=== PATIENT | female | born 1945 | race Caucasian/White ===

== ENCOUNTER 2017-05-14 17:58 | Inpatient (IN) | payer MEDICARE, MEDICAID ==
[~2017-05-14] VITALS: Ht 160 cm; Wt 75.4 kg
[~2017-05-14 17:58] MED LIST: AMLO10TA80 PO; ATOR80TA PO; COR25 PO; FURO40TA5 PO; Folic Acid PO; LEVO112T7 PO; Lisinopril PO; SEVE800T8 PO
[2017-05-14] MEDS ORDERED: ACETAMINOPHEN 325MG TABLET PO STA (18:56)
[2017-05-14] MEDS ORDERED: PIPERACILLIN/TAZ 3.375G PREMIX 50 ML IV ONE (19:00)
[2017-05-14] MEDS ORDERED: VANCOMYCIN 1 G PREMIX 200 ML IV ONE (19:00)
[2017-05-14] MEDS ORDERED: FAMOTIDINE 20MG/2ML VIAL IV ONE (19:00)
[2017-05-14] MEDS ORDERED: SODIUM CHLORIDE 0.9% 1000ML BAG (SEPSIS BOLUS) IV ONE (19:00)
[2017-05-14 19:38] LABS: CHLORIDE 94 mEq/L (98-107)
[2017-05-14 19:41] LABS: HEMATOCRIT. 34.3 % (36.0-48.0); HEMOGLOBIN. 11.3 g/dL (12.0-16.0); INR 1.2; MEAN CORPUSCULAR HEMOGLOBIN 30.7 pg (28.0-32.0); MEAN CORPUSCULAR VOLUME 93.4 fL (81.0-99.0); MEAN PLATELET VOLUME 9.5 fl (7.4-10.4); PARTIAL THROMBOPLASTIN TIME 36.4 sec (23.4-31.0); PLATELET 60 x1000/uL (130-400); PROTHROMBIN TIME 12.3 sec (9.4-11.6); RED BLOOD CELL COUNT 3.67 mill/uL (4.2-5.4); RED CELL DISTRIBUTION WIDTH 14.2 % (11.6-14.6)
[2017-05-14 19:50] LABS: CARBON DIOXIDE 24 mEq/L (21-32); TROPONIN I < 0.02 ng/mL (0.00-0.04)
[2017-05-14 20:09] LABS: PLATELET ESTIMATE DECREASED
[2017-05-14] MEDS ORDERED: GENTAMICIN 80MG PREMIX 100 ML IV ONE (23:15)
[2017-05-14] MEDS ORDERED: NOREPINEPHRINE 4 MG in DEXT 5% WATER 246 ML IV ONE (23:15)
[2017-05-14] MEDS ORDERED: NOREPINEPHRINE 4 MG in DEXT 5% WATER 246 ML IV SCH (23:30)
[2017-05-15] VITALS (96 sets, daily range): BP systolic 64–178; BP diastolic 23–76
[2017-05-15] MEDS ORDERED: DEXT 5%/0.45% NACL 1000ML 1,000 ML IV SCH (01:27)
[2017-05-15] MEDS ORDERED: DEXTROSE 50% WATER 50ML SYRINGE IV PRN (01:30)
[2017-05-15] MEDS ORDERED: NOREPINEPHRINE 4 MG in DEXT 5% WATER 246 ML IV PRN (01:45)
[2017-05-15] MEDS: NOREPINEPHRINE 16 MG in DEXT 5% WATER 234 ML IV PRN ×2 (05:22→18:21)
[2017-05-15 05:37] LABS: HEMATOCRIT. 33.4 % (36.0-48.0); HEMOGLOBIN. 10.9 g/dL (12.0-16.0); MEAN CORPUSCULAR HEMOGLOBIN 30.6 pg (28.0-32.0); MEAN CORPUSCULAR VOLUME 93.9 fL (81.0-99.0); MEAN PLATELET VOLUME 10.1 fl (7.4-10.4); RED BLOOD CELL COUNT 3.55 mill/uL (4.2-5.4); RED CELL DISTRIBUTION WIDTH 14.6 % (11.6-14.6)
[2017-05-15] MEDS: PIPERACILLIN/TAZ 2.25G PREMIX 50 ML IV SCH ×3 (05:58→21:31)
[2017-05-15 06:11] LABS: CARBON DIOXIDE 23 mEq/L (21-32); CHLORIDE 95 mEq/L (98-107); CREATINE KINASE 104 IU/L (26-192); PHOSPHORUS 3.6 mg/dL (2.5-4.9)
[2017-05-15 06:16] LABS: CREATINE KINASE MB FRACTION 1.1 ng/mL (0.5-3.6); TROPONIN I < 0.02 ng/mL (0.00-0.04)
[2017-05-15 06:23] LABS: PLATELET 48 x1000/uL (130-400)
[2017-05-15] MEDS: BLOOD SUGAR DIAGNOSTIC STRIP TEST SCH ×4 (08:13→21:30)
[2017-05-15] MEDS: INSULIN LISPRO 100 UNITS/ML SUBCUT SCH ×4 (08:14→21:00)
[2017-05-15] MEDS ORDERED: PANTOPRAZOLE SODIUM 40 MG/VIAL IV SCH (09:00)
[2017-05-15] MEDS: FAMOTIDINE 20MG/2ML VIAL IV SCH (09:19)
[2017-05-15 12:10] LABS: PLATELET ESTIMATE MARKEDLY DECREASED
[2017-05-15] MEDS ORDERED: HEPARIN SODIUM 1,000 UNIT/1ML VIAL IV SCH (13:00)
[2017-05-16] VITALS (101 sets, daily range): BP systolic 75–152; BP diastolic 31–99
[2017-05-16] MEDS: PIPERACILLIN/TAZ 2.25G PREMIX 50 ML IV SCH ×3 (05:06→22:34)
[2017-05-16 06:19] LABS: HEMATOCRIT. 34.6 % (36.0-48.0); HEMOGLOBIN. 11.3 g/dL (12.0-16.0); MEAN CORPUSCULAR HEMOGLOBIN 30.4 pg (28.0-32.0); MEAN CORPUSCULAR VOLUME 92.6 fL (81.0-99.0); MEAN PLATELET VOLUME 10.7 fl (7.4-10.4); RED BLOOD CELL COUNT 3.74 mill/uL (4.2-5.4); RED CELL DISTRIBUTION WIDTH 14.7 % (11.6-14.6)
[2017-05-16 06:43] LABS: CARBON DIOXIDE 23 mEq/L (21-32); CHLORIDE 99 mEq/L (98-107); PHOSPHORUS 2.9 mg/dL (2.5-4.9)
[2017-05-16 06:50] LABS: PLATELET 38 x1000/uL (130-400)
[2017-05-16] MEDS ORDERED: LIDOCAINE HCL 1% 20ML VIAL (Pyxis) INJ ONE (07:39)
[2017-05-16] MEDS ORDERED: SODIUM BICARBONATE 4% (2.4MEQ) 5ML VIAL IV ONE (07:39)
[2017-05-16] MEDS ORDERED: IOHEXOL-300 50 ML BOTTLE IV ONE (07:40)
[2017-05-16] MEDS ORDERED: FENTANYL CITRATE/PF 50MCG/ML 2ML VIAL ONE (08:16)
[2017-05-16] MEDS ORDERED: FENTANYL CITRATE/PF 50MCG/ML 2ML VIAL IV ONE (08:45)
[2017-05-16 09:13] LABS: PLATELET ESTIMATE MARKEDLY DECREASED
[2017-05-16] MEDS: BLOOD SUGAR DIAGNOSTIC STRIP TEST SCH ×4 (09:25→21:13)
[2017-05-16] MEDS: HYDROMORPHONE HCL/PF 2MG/ML CPJ IM PRN (09:25)
[2017-05-16] MEDS: FAMOTIDINE 20MG/2ML VIAL IV SCH (09:25)
[2017-05-16] MEDS: INSULIN LISPRO 100 UNITS/ML SUBCUT SCH ×4 (09:26→21:00)
[2017-05-16] MEDS ORDERED: FUROSEMIDE 40MG/4ML VIAL IVP NR (10:45)
[2017-05-16] MEDS: ACETAMINOPHEN 325MG TABLET PO PRN (15:22)
[2017-05-16] MEDS: NOREPINEPHRINE 16 MG in DEXT 5% WATER 234 ML IV PRN (15:37)
[2017-05-17] VITALS (50 sets, daily range): BP systolic 95–145; BP diastolic 40–81
[2017-05-17] MEDS: NOREPINEPHRINE 16 MG in DEXT 5% WATER 234 ML IV PRN (00:09)
[2017-05-17 05:24] LABS: BASOPHILS % 0.3 % (0.0-2.0); HEMATOCRIT. 32.6 % (36.0-48.0); HEMOGLOBIN. 10.8 g/dL (12.0-16.0); LYMPHOCYTES % 9.4 % (20.0-50.0); MEAN CORPUSCULAR HEMOGLOBIN 30.6 pg (28.0-32.0); MEAN CORPUSCULAR VOLUME 92.5 fL (81.0-99.0); MEAN PLATELET VOLUME 9.7 fl (7.4-10.4); MONOCYTES % 6.5 % (2.0-8.0); NEUTROPHILS % 82.8 % (40.0-76.0); RED BLOOD CELL COUNT 3.53 mill/uL (4.2-5.4); RED CELL DISTRIBUTION WIDTH 14.8 % (11.6-14.6)
[2017-05-17 05:30] LABS: PLATELET 29 x1000/uL (130-400)
[2017-05-17 05:40] LABS: CARBON DIOXIDE 23 mEq/L (21-32); CHLORIDE 102 mEq/L (98-107); PHOSPHORUS 3.3 mg/dL (2.5-4.9)
[2017-05-17] MEDS: PIPERACILLIN/TAZ 2.25G PREMIX 50 ML IV SCH ×3 (06:08→22:58)
[2017-05-17] MEDS: HYDROMORPHONE HCL/PF 2MG/ML CPJ IM PRN (07:23)
[2017-05-17] MEDS: BLOOD SUGAR DIAGNOSTIC STRIP TEST SCH ×4 (07:50→21:40)
[2017-05-17] MEDS: INSULIN LISPRO 100 UNITS/ML SUBCUT SCH ×4 (08:02→21:00)
[2017-05-17] MEDS: FAMOTIDINE 20MG/2ML VIAL IV SCH (09:24)
[2017-05-17 19:12] LABS: BASOPHILS % 0.6 % (0.0-2.0); EOSINOPHILS % 1.6 % (0.0-5.0); HEMATOCRIT. 33.1 % (36.0-48.0); HEMOGLOBIN. 10.9 g/dL (12.0-16.0); MEAN CORPUSCULAR HEMOGLOBIN 30.9 pg (28.0-32.0); MEAN CORPUSCULAR VOLUME 93.5 fL (81.0-99.0); MEAN PLATELET VOLUME 9.8 fl (7.4-10.4); MONOCYTES % 7.6 % (2.0-8.0); NEUTROPHILS % 77.2 % (40.0-76.0); RED BLOOD CELL COUNT 3.54 mill/uL (4.2-5.4); RED CELL DISTRIBUTION WIDTH 14.8 % (11.6-14.6)
[2017-05-17 19:20] LABS: PLATELET 31 x1000/uL (130-400)
[2017-05-17] MEDS: ACETAMINOPHEN 325MG TABLET PO PRN (23:23)
[2017-05-18] VITALS (12 sets, daily range): BP systolic 106–164; BP diastolic 51–69
[2017-05-18] MEDS: BLOOD SUGAR DIAGNOSTIC STRIP TEST SCH ×4 (05:54→20:27)
[2017-05-18] MEDS: PIPERACILLIN/TAZ 2.25G PREMIX 50 ML IV SCH ×2 (05:55→13:15)
[2017-05-18 05:58] LABS: BASOPHILS % 0.7 % (0.0-2.0); EOSINOPHILS % 2.3 % (0.0-5.0); HEMOGLOBIN. 11.3 g/dL (12.0-16.0); LYMPHOCYTES % 16.6 % (20.0-50.0); MEAN CORPUSCULAR HEMOGLOBIN 30.8 pg (28.0-32.0); MEAN CORPUSCULAR VOLUME 92.3 fL (81.0-99.0); MEAN PLATELET VOLUME 10.3 fl (7.4-10.4); MONOCYTES % 9.4 % (2.0-8.0); RED BLOOD CELL COUNT 3.68 mill/uL (4.2-5.4); RED CELL DISTRIBUTION WIDTH 14.8 % (11.6-14.6)
[2017-05-18 06:21] LABS: PLATELET 30 x1000/uL (130-400)
[2017-05-18 06:54] LABS: CARBON DIOXIDE 22 mEq/L (21-32); CHLORIDE 100 mEq/L (98-107)
[2017-05-18 06:56] LABS: PHOSPHORUS 3.2 mg/dL (2.5-4.9)
[2017-05-18] MEDS: INSULIN LISPRO 100 UNITS/ML SUBCUT SCH ×4 (07:20→20:27)
[2017-05-18] MEDS: FAMOTIDINE 20MG/2ML VIAL IV SCH (08:13)
[2017-05-18] MEDS ORDERED: LEVOFLOXACIN 250MG PREMIX 50 ML IV SCH (20:00)
[2017-05-19] VITALS (13 sets, daily range): BP systolic 131–163; BP diastolic 51–67
[2017-05-19] MEDS: INSULIN LISPRO 100 UNITS/ML SUBCUT SCH ×4 (06:26→20:13)
[2017-05-19] MEDS: BLOOD SUGAR DIAGNOSTIC STRIP TEST SCH ×4 (06:26→20:12)
[2017-05-19 07:13] LABS: EOSINOPHILS % 3.3 % (0.0-5.0); HEMATOCRIT. 33.8 % (36.0-48.0); HEMOGLOBIN. 11.2 g/dL (12.0-16.0); LYMPHOCYTES % 20.1 % (20.0-50.0); MEAN CORPUSCULAR HEMOGLOBIN 30.4 pg (28.0-32.0); MEAN CORPUSCULAR VOLUME 91.7 fL (81.0-99.0); MEAN PLATELET VOLUME 10.7 fl (7.4-10.4); MONOCYTES % 14.5 % (2.0-8.0); NEUTROPHILS % 61.1 % (40.0-76.0); RED BLOOD CELL COUNT 3.69 mill/uL (4.2-5.4); RED CELL DISTRIBUTION WIDTH 14.8 % (11.6-14.6)
[2017-05-19 07:20] LABS: PHOSPHORUS 3.1 mg/dL (2.5-4.9)
[2017-05-19 08:41] LABS: PLATELET 35 x1000/uL (130-400)
[2017-05-19] MEDS ORDERED: HEPARIN SODIUM 1,000 UNIT/1ML VIAL IV SCH (09:00)
[2017-05-19] MEDS: FAMOTIDINE 20MG/2ML VIAL IV SCH (09:12)
[2017-05-19 21:04] LABS: PLATELET ESTIMATE MARKEDLY DECREASED
[2017-05-20] VITALS (11 sets, daily range): BP systolic 150–163; BP diastolic 49–71
[2017-05-20] MEDS: BLOOD SUGAR DIAGNOSTIC STRIP TEST SCH ×3 (06:36→16:50)
[2017-05-20] MEDS: INSULIN LISPRO 100 UNITS/ML SUBCUT SCH ×3 (07:00→17:20)
[2017-05-20 07:24] LABS: HEMATOCRIT. 35.4 % (36.0-48.0); HEMOGLOBIN. 11.6 g/dL (12.0-16.0); MEAN CORPUSCULAR HEMOGLOBIN 30.2 pg (28.0-32.0); MEAN CORPUSCULAR VOLUME 92.3 fL (81.0-99.0); RED BLOOD CELL COUNT 3.83 mill/uL (4.2-5.4); RED CELL DISTRIBUTION WIDTH 14.6 % (11.6-14.6)
[2017-05-20 07:28] LABS: PHOSPHORUS 2.3 mg/dL (2.5-4.9)
[2017-05-20 07:56] LABS: PLATELET 43 x1000/uL (130-400)
[2017-05-20] MEDS ORDERED: LISINOPRIL 20MG TABLET PO SCH (09:00)
[2017-05-20] MEDS: FAMOTIDINE 20MG/2ML VIAL IV SCH (09:09)
[2017-05-20 09:12] LABS: IMMUNOGLOBULIN A 282 mg/dL (87-352); IMMUNOGLOBULIN G 1571 mg/dL (700-1600); IMMUNOGLOBULIN M 206 mg/dL (26-217)
[2017-05-20 10:46] LABS: ATYPICAL LYMPHOCYTES 4; PLATELET ESTIMATE MARKEDLY DECREASED
[2017-05-20] MEDS ORDERED: LEVOFLOXACIN 250MG PREMIX 50 ML IV SCH (20:00)
== END 2017-05-20 19:34 | disposition home health service (06) | DRG 871 ==
LOC: ER 18:10 → CVICU 20:53 → EDBEDREQ 21:01 → EDBEDREQTM 21:01 → ENRESERV 21:37 → EDBEDREQSVC 23:18 → EDBEDREQ 23:18 → ENRESERV 23:29 → 3WST 05-17 17:19
PROVIDERS: ADMIT Internal Medicine; ATTEND Internal Medicine
PROC: 06HM33Z Insertion of Infusion Device into Right Femoral Vein, Percutaneous Approach (ICD-10-PCS; 2017-05-14)
PROC: B54BZZA Ultrasonography of Right Lower Extremity Veins, Guidance (ICD-10-PCS; 2017-05-14)
PROC: 0F9430Z Drainage of Gallbladder with Drainage Device, Percutaneous Approach (ICD-10-PCS; principal; 2017-05-16)
PROC: 30233R1 Transfusion of Nonautologous Platelets into Peripheral Vein, Percutaneous Approach (ICD-10-PCS; 2017-05-16)
DX: A41.9 Sepsis, unspecified organism (principal); R65.21 Severe sepsis with septic shock; E43 Unspecified severe protein-calorie malnutrition; I13.2 Hypertensive heart and chronic kidney disease with heart failure and with stage 5 chronic kidney disease, or end stage renal disease; D61.818 Other pancytopenia; K80.62 Calculus of gallbladder and bile duct with acute cholecystitis without obstruction; N18.6 End stage renal disease; E11.22 Type 2 diabetes mellitus with diabetic chronic kidney disease; E11.51 Type 2 diabetes mellitus with diabetic peripheral angiopathy without gangrene; E87.1 Hypo-osmolality and hyponatremia; I50.9 Heart failure, unspecified; Z99.2 Dependence on renal dialysis; E66.9 Obesity, unspecified; E78.5 Hyperlipidemia, unspecified; I25.10 Atherosclerotic heart disease of native coronary artery without angina pectoris; J44.9 Chronic obstructive pulmonary disease, unspecified; Z79.899 Other long term (current) drug therapy; Z82.49 Family history of ischemic heart disease and other diseases of the circulatory system; Z83.3 Family history of diabetes mellitus; Z89.511 Acquired absence of right leg below knee; Z89.512 Acquired absence of left leg below knee; Z89.611 Acquired absence of right leg above knee; Z89.612 Acquired absence of left leg above knee; Z91.19 Patient's noncompliance with other medical treatment and regimen; Z88.6 Allergy status to analgesic agent; Z68.29 Body mass index [BMI] 29.0-29.9, adult
CPT/HCPCS: 36415; 36556; 47490; 71010; 76700; 76705; 80048; 80053; 82550; 82553; 82784; 82962; 83605; 83690; 83735; 84100; 84484; 85025; 85384; 85610; 85730; 86334; 86850; 86900; 86945; 87040; 87804; 93005; 96365; 96367; 96375; 99291; A6261; C1769; J1170; J1580; J1644; J1940; J1956; J2543; J3010; J3370; J3490; J7030; J7040; J7050; J7060; P9034; Q9967

== ENCOUNTER 2017-08-06 18:46 | Emergency (ER) | payer MEDICARE, MEDICAID ==
[~2017-08-06] VITALS: Ht 160 cm; Wt 82.0 kg
[~2017-08-06 18:46] MED LIST changes: -AMLO10TA80 PO; -ATOR80TA PO; -FURO40TA5 PO; -Folic Acid PO; +OMEP20CA10 PO; +VITA-137 PO
[2017-08-06] MEDS ORDERED: CLONIDINE 0.2MG TABLET PO ONE (21:15)
[2017-08-06 21:44] LABS: EOSINOPHILS % 4.4 % (0.0-5.0); HEMATOCRIT. 36.9 % (36.0-48.0); HEMOGLOBIN. 12.4 g/dL (12.0-16.0); LYMPHOCYTES % 23.6 % (20.0-50.0); MEAN CORPUSCULAR HEMOGLOBIN 32.1 pg (28.0-32.0); MEAN PLATELET VOLUME 10.6 fl (7.4-10.4); MONOCYTES % 8.8 % (2.0-8.0); NEUTROPHILS % 62.2 % (40.0-76.0); PLATELET 94 x1000/uL (130-400); RED BLOOD CELL COUNT 3.85 mill/uL (4.2-5.4); RED CELL DISTRIBUTION WIDTH 14.8 % (11.6-14.6)
[2017-08-06 21:45] LABS: PROTHROMBIN TIME 10.7 sec (9.4-11.6)
[2017-08-06 21:54] LABS: CARBON DIOXIDE 25 mEq/L (21-32); CHLORIDE 101 mEq/L (98-107); TROPONIN I < 0.02 ng/mL (0.00-0.04)
[2017-08-06 22:03] LABS: CLARITY URINE CLOUDY (CLEAR); COLOR URINE YELLOW (YELLOW); KETONES URINE NEGATIVE (NEGATIVE); LEUKOCYTE ESTERASE URINE 3+ (NEGATIVE); NITRITE URINE NEGATIVE (NEGATIVE); OCCULT BLOOD URINE 1+ (NEGATIVE); PH URINE 8.5 (4.5-8.0); PROTEIN URINE 3+ (NEGATIVE); SPECIFIC GRAVITY URINE 1.009 (1.005-1.030); UROBILINOGEN URINE 0.2 E.U./dL (0.2-1.0)
[2017-08-06] MEDS ORDERED: ONDANSETRON HCL 4MG/2ML VIAL IV ONE (23:30)
[2017-08-06] MEDS ORDERED: FENTANYL CITRATE/PF 50MCG/ML 2ML VIAL IV ONE (23:30)
[2017-08-07 00:40] VITALS: BP 161/65
== END 2017-08-07 00:40 | disposition home or self-care (01) ==
LOC: ER 18:59
DX: R10.9 Unspecified abdominal pain (principal); I13.2 Hypertensive heart and chronic kidney disease with heart failure and with stage 5 chronic kidney disease, or end stage renal disease; E11.22 Type 2 diabetes mellitus with diabetic chronic kidney disease; N18.6 End stage renal disease; I50.9 Heart failure, unspecified; Z99.2 Dependence on renal dialysis; Z88.5 Allergy status to narcotic agent
CPT/HCPCS: 36415; 71010; 76705; 80053; 81001; 83690; 83880; 84484; 85025; 85610; 96374; 96375; 99285; J2405; J3010

== ENCOUNTER 2018-07-05 22:23 | Emergency (ER) | payer OTHER, MEDICAID ==
[~2018-07-05] VITALS: Ht 91.4 cm; Wt 79.0 kg
[~2018-07-05 22:23] MED LIST changes: +FURO-151 PO
[2018-07-05 23:50] LABS: BASOPHILS % 1.7 % (0.0-2.0); EOSINOPHILS % 3.6 % (0.0-5.0); HEMATOCRIT. 28.4 % (36.0-48.0); HEMOGLOBIN. 9.4 g/dL (12.0-16.0); LYMPHOCYTES % 22.8 % (20.0-50.0); MEAN CORPUSCULAR HEMOGLOBIN 31.4 pg (28.0-32.0); MEAN CORPUSCULAR VOLUME 94.5 fL (81.0-99.0); MEAN PLATELET VOLUME 8.6 fl (7.4-10.4); MONOCYTES % 10.6 % (2.0-8.0); NEUTROPHILS % 61.3 % (40.0-76.0); PLATELET 123 x1000/uL (130-400); RED BLOOD CELL COUNT 3.01 mill/uL (4.2-5.4); RED CELL DISTRIBUTION WIDTH 17.4 % (11.6-14.6)
[2018-07-05 23:53] LABS: CHLORIDE 107 mEq/L (98-107)
[2018-07-05 23:59] LABS: INR 1.1; PROTHROMBIN TIME 10.7 sec (9.1-11.1)
[2018-07-06] MEDS ORDERED: ACETAMINOPHEN 500MG TABLET PO ONE (01:00)
[2018-07-06 01:37] VITALS: BP 152/58
[2018-07-07] MEDS ORDERED: APIX5TAB PO (22:50)
== END 2018-07-06 01:40 | disposition left against medical advice (07) ==
LOC: ER 22:25
DX: I13.2 Hypertensive heart and chronic kidney disease with heart failure and with stage 5 chronic kidney disease, or end stage renal disease (principal); D69.6 Thrombocytopenia, unspecified; N18.6 End stage renal disease; E78.00 Pure hypercholesterolemia, unspecified; E11.9 Type 2 diabetes mellitus without complications; I50.9 Heart failure, unspecified; Z98.890 Other specified postprocedural states; Z99.2 Dependence on renal dialysis; Z79.899 Other long term (current) drug therapy; Z88.6 Allergy status to analgesic agent
CPT/HCPCS: 36415; 93005; 99284

== ENCOUNTER 2018-07-07 15:38 | Inpatient (IN) | payer OTHER, MEDICAID ==
[~2018-07-07] VITALS: Ht 149.9 cm; Wt 76.2 kg
[2018-07-07 18:03] LABS: BASOPHILS % 0.8 % (0.0-2.0); EOSINOPHILS % 3.2 % (0.0-5.0); HEMATOCRIT. 27.6 % (36.0-48.0); HEMOGLOBIN. 9.4 g/dL (12.0-16.0); LYMPHOCYTES % 23.3 % (20.0-50.0); MEAN CORPUSCULAR HEMOGLOBIN 33.2 pg (28.0-32.0); MEAN CORPUSCULAR VOLUME 97.8 fL (81.0-99.0); MEAN PLATELET VOLUME 9.9 fl (7.4-10.4); MONOCYTES % 13.5 % (2.0-8.0); NEUTROPHILS % 59.2 % (40.0-76.0); PLATELET 152 x1000/uL (130-400); RED BLOOD CELL COUNT 2.83 mill/uL (4.2-5.4); RED CELL DISTRIBUTION WIDTH 17.8 % (11.6-14.6)
[2018-07-07 18:09] LABS: CHLORIDE 108 mEq/L (98-107)
[2018-07-07 18:10] LABS: PARTIAL THROMBOPLASTIN TIME 36.1 sec (23.4-31.0); PROTHROMBIN TIME 10.2 sec (9.1-11.1)
[2018-07-07] MEDS ORDERED: SODIUM BICARBONATE 8.4% 1 MEQ/ML 50ML SYR IV ONE (18:30)
[2018-07-07] MEDS ORDERED: DEXTROSE 50% WATER 50ML SYRINGE IV ONE (18:30)
[2018-07-07] MEDS ORDERED: ALBUTEROL (0.083%) 2.5MG/3ML NEB HHN ONE (18:30)
[2018-07-07] MEDS ORDERED: INSULIN REGULAR (HUMULIN R) 300UNITS/3ML IV ONE (18:30)
[2018-07-07] MEDS ORDERED: SODIUM POLYSTYRENE SULFONATE 15 G/60 ML BOT PO ONE (18:30)
[2018-07-07 21:56] VITALS: BP 121/48
[2018-07-07] MEDS ORDERED: HYDROCODONE/ACETAMINOPHEN 5/325MG TABLET PO PRN (22:45)
[2018-07-07] MEDS ORDERED: IPRATROPIUM/ALBUTEROL 0.5-3(2.5)MG/3ML NEB INH PRN (22:45)
[2018-07-07] MEDS ORDERED: VANCOMYCIN 1 G PREMIX 200 ML IV SCH (22:45)
[2018-07-07] MEDS ORDERED: APIX5TAB PO (22:50)
[2018-07-07] MEDS ORDERED: DEXTROSE 50% WATER 50ML SYRINGE IV PRN (23:15)
[2018-07-08] VITALS: BP 107/41
[2018-07-08] MEDS ORDERED: VANCOMYCIN 1250MG in DEXTROSE 5% WATER 250ML IV NR ×2 (01:00→16:30)
[2018-07-08] MEDS: ACETAMINOPHEN 325MG TABLET PO PRN ×2 (01:33→12:41)
[2018-07-08 04:00] VITALS: BP 115/41
[2018-07-08] MEDS: PIPERACILLIN/TAZ 2.25G PREMIX 50 ML IV SCH ×2 (04:00→16:00)
[2018-07-08] MEDS: BLOOD SUGAR DIAGNOSTIC STRIP TEST SCH ×4 (05:47→20:36)
[2018-07-08] MEDS ORDERED: PIPERACILLIN/TAZOBACTAM 2.25 G in DEXTROSE 5% WATER 50 ML IV SCH (06:00)
[2018-07-08] MEDS: OMEPRAZOLE 20MG CAPSULE EXTENDED RELEASE PO SCH (06:25)
[2018-07-08] MEDS ORDERED: LEVOTHYROXINE SODIUM 112MCG TABLET PO SCH (07:20)
[2018-07-08] MEDS: INSULIN LISPRO 100 UNITS/ML SUBCUT SCH ×4 (07:49→20:36)
[2018-07-08] MEDS ORDERED: MEDICATION NOT ON FORMULARY EA (Sevelamer Carbonate (Renvela) 800 MG) PO SCH (07:50)
[2018-07-08 08:00] VITALS: BP 129/37
[2018-07-08] MEDS ORDERED: VITAMIN B COMPLEX PO SCH (09:00)
[2018-07-08] MEDS ORDERED: MEDICATION NOT ON FORMULARY EA (Apixaban (Eliquis) 5 MG) PO SCH (09:00)
[2018-07-08] MEDS: FUROSEMIDE 40MG/4ML VIAL IV SCH (09:28)
[2018-07-08] MEDS: SEVELAMER CARBONATE 800 MG TABLET PO SCH ×3 (09:28→19:07)
[2018-07-08] MEDS: APIXABAN 5 MG TABLET PO SCH ×2 (09:28→19:07)
[2018-07-08] MEDS: FOLIC ACID/VITAMIN B COMP W-C TABLET PO SCH (09:28)
[2018-07-08 12:00] VITALS: BP 158/58
[2018-07-08 12:55] LABS: CHLORIDE 109 mEq/L (98-107)
[2018-07-08 13:02] LABS: LDL CHOLESTEROL 45 mg/dL (5-100); PHOSPHORUS 7.2 mg/dL (2.5-4.9)
[2018-07-08 13:04] LABS: CREATINE KINASE MB FRACTION 2.4 ng/mL (0.5-3.6); HDL CHOLESTEROL 47 mg/dL (40-59)
[2018-07-08 13:13] LABS: BASOPHILS % 1.2 % (0.0-2.0); EOSINOPHILS % 1.8 % (0.0-5.0); HEMATOCRIT. 25.4 % (36.0-48.0); HEMOGLOBIN. 8.5 g/dL (12.0-16.0); LYMPHOCYTES % 20.2 % (20.0-50.0); MEAN CORPUSCULAR HEMOGLOBIN 31.3 pg (28.0-32.0); MEAN CORPUSCULAR VOLUME 93.9 fL (81.0-99.0); MEAN PLATELET VOLUME 8.7 fl (7.4-10.4); MONOCYTES % 11.7 % (2.0-8.0); NEUTROPHILS % 65.1 % (40.0-76.0); PLATELET 106 x1000/uL (130-400); RED BLOOD CELL COUNT 2.71 mill/uL (4.2-5.4)
[2018-07-08 16:00] VITALS: BP 99/36
[2018-07-08] MEDS: LACTULOSE 20G/30ML UDC PO SCH (19:07)
[2018-07-08 20:32] VITALS: BP 121/49
[2018-07-08 21:15] LABS: CREATINE KINASE MB FRACTION 1.9 ng/mL (0.5-3.6)
[2018-07-09] VITALS (8 sets, daily range): BP systolic 92–125; BP diastolic 30–44
[2018-07-09] MEDS: PIPERACILLIN/TAZ 2.25G PREMIX 50 ML IV SCH ×2 (04:00→15:49)
[2018-07-09] MEDS: LEVOTHYROXINE SODIUM 125MCG TABLET PO SCH (06:19)
[2018-07-09] MEDS: OMEPRAZOLE 20MG CAPSULE EXTENDED RELEASE PO SCH (06:19)
[2018-07-09] MEDS: BLOOD SUGAR DIAGNOSTIC STRIP TEST SCH ×4 (06:20→21:00)
[2018-07-09] MEDS: ONDANSETRON HCL 4MG/2ML INJ IV PRN ×2 (06:26→15:16)
[2018-07-09] MEDS: INSULIN LISPRO 100 UNITS/ML SUBCUT SCH ×4 (07:50→21:00)
[2018-07-09] MEDS: SEVELAMER CARBONATE 800 MG TABLET PO SCH ×3 (07:50→17:33)
[2018-07-09] MEDS: FOLIC ACID/VITAMIN B COMP W-C TABLET PO SCH (08:55)
[2018-07-09] MEDS: APIXABAN 5 MG TABLET PO SCH ×2 (08:55→17:32)
[2018-07-09] MEDS: LACTULOSE 20G/30ML UDC PO SCH ×3 (08:55→21:35)
[2018-07-09] MEDS: ACETAMINOPHEN 325MG TABLET PO PRN (08:56)
[2018-07-09] MEDS: FUROSEMIDE 40MG/4ML VIAL IV SCH (08:58)
[2018-07-09] MEDS ORDERED: VANCOMYCIN 1250MG in DEXTROSE 5% WATER 250ML IV SCH (14:00)
[2018-07-09 17:24] LABS: HEMATOCRIT 24.9 % (36.0-48.0); HEMOGLOBIN 8.2 g/dL (12.0-16.0); MEAN CORPUSCULAR HEMOGLOBIN 31.4 pg (28.0-32.0); MEAN CORPUSCULAR VOLUME 94.9 fL (81.0-99.0); PLATELET 78 x1000/uL (130-400); RED BLOOD CELL COUNT 2.62 mill/uL (4.2-5.4)
[2018-07-10] VITALS (7 sets, daily range): BP systolic 101–136; BP diastolic 31–61
[2018-07-10] MEDS: PIPERACILLIN/TAZ 2.25G PREMIX 50 ML IV SCH (04:00)
[2018-07-10] MEDS: LACTULOSE 20G/30ML UDC PO SCH ×2 (06:55→14:18)
[2018-07-10] MEDS: BLOOD SUGAR DIAGNOSTIC STRIP TEST SCH ×4 (07:30→21:26)
[2018-07-10] MEDS: INSULIN LISPRO 100 UNITS/ML SUBCUT SCH ×4 (07:31→21:00)
[2018-07-10] MEDS: SEVELAMER CARBONATE 800 MG TABLET PO SCH ×3 (07:50→17:24)
[2018-07-10] MEDS: LEVOTHYROXINE SODIUM 125MCG TABLET PO SCH (07:57)
[2018-07-10] MEDS: FUROSEMIDE 40MG/4ML VIAL IV SCH (09:00)
[2018-07-10 11:00] LABS: HEMATOCRIT 24.1 % (36.0-48.0); MEAN CORPUSCULAR HEMOGLOBIN 31.5 pg (28.0-32.0); MEAN CORPUSCULAR VOLUME 95.4 fL (81.0-99.0); PLATELET 67 x1000/uL (130-400); RED BLOOD CELL COUNT 2.53 mill/uL (4.2-5.4); RED CELL DISTRIBUTION WIDTH 17.6 % (11.6-14.6)
[2018-07-10] MEDS: FAMOTIDINE 20MG TABLET PO SCH (12:07)
[2018-07-10] MEDS: APIXABAN 5 MG TABLET PO SCH (12:07)
[2018-07-10] MEDS: ACETAMINOPHEN 325MG TABLET PO PRN ×2 (12:07→18:42)
[2018-07-10] MEDS: FOLIC ACID/VITAMIN B COMP W-C TABLET PO SCH (12:07)
[2018-07-10] MEDS: ONDANSETRON HCL 4MG/2ML INJ IV PRN (12:50)
[2018-07-10] MEDS ORDERED: *TOBRAMYCIN PER PHARMACY XX SCH (13:30)
[2018-07-10] MEDS ORDERED: VANCOMYCIN 1 G PREMIX 200 ML IV SCH (14:00)
[2018-07-10] MEDS ORDERED: POTASSIUM CHLORIDE INJ 40 MEQ in DEXT 5% WATER 250 ML IV NR ×2 (14:00→21:00)
[2018-07-10] MEDS: IRON SUCROSE COMPLEX 100 MG/5 ML ML IV SCH (14:18)
[2018-07-10] MEDS ORDERED: EPOETIN ALFA 4000UNITS/ML VIAL SUBCUT SCH ×2 (15:00→21:00)
[2018-07-10] MEDS ORDERED: TOBRAMYCIN SULFATE 140 MG in SODIUM CHLORIDE 0.9% 100 ML IV SCH (15:00)
[2018-07-10] MEDS ORDERED: SORBITOL 70% SOLN 30ML PO NR (16:30)
[2018-07-10] MEDS ORDERED: POTASSIUM CHLORIDE 20MEQ TABLET SR PO PRN (16:37)
[2018-07-10] MEDS ORDERED: POTASSIUM CHLORIDE INJ 40 MEQ in DEXT 5% WATER 250 ML IV PRN (18:00)
[2018-07-10] MEDS ORDERED: BISACODYL 5MG TABLET PO PRN (18:45)
[2018-07-10] MEDS ORDERED: TOBRAMYCIN SULFATE 140 MG in SODIUM CHLORIDE 0.9% 100 ML IV NR (19:00)
[2018-07-11] VITALS: BP 125/37
[2018-07-11 04:00] VITALS: BP 147/60
[2018-07-11 05:30] LABS: CLARITY URINE TURBID (CLEAR); COLOR URINE RED (YELLOW); KETONES URINE TRACE (NEGATIVE); LEUKOCYTE ESTERASE URINE 3+ (NEGATIVE); NITRITE URINE NEGATIVE (NEGATIVE); OCCULT BLOOD URINE 3+ (NEGATIVE); PH URINE 5.5 (4.5-8.0); PROTEIN URINE 3+ (NEGATIVE); SPECIFIC GRAVITY URINE 1.018 (1.005-1.030); UROBILINOGEN URINE 0.2 E.U./dL (0.2-1.0)
[2018-07-11] MEDS: ACETAMINOPHEN 325MG TABLET PO PRN (05:53)
[2018-07-11] MEDS: LEVOTHYROXINE SODIUM 125MCG TABLET PO SCH (06:31)
[2018-07-11] MEDS: BLOOD SUGAR DIAGNOSTIC STRIP TEST SCH ×4 (06:31→20:30)
[2018-07-11 07:13] LABS: HEMATOCRIT 25.1 % (36.0-48.0); HEMOGLOBIN 8.5 g/dL (12.0-16.0); MEAN CORPUSCULAR HEMOGLOBIN 31.5 pg (28.0-32.0); MEAN CORPUSCULAR VOLUME 92.9 fL (81.0-99.0); PLATELET 68 x1000/uL (130-400); RED CELL DISTRIBUTION WIDTH 17.5 % (11.6-14.6)
[2018-07-11] MEDS: INSULIN LISPRO 100 UNITS/ML SUBCUT SCH ×3 (07:29→17:50)
[2018-07-11] MEDS: SEVELAMER CARBONATE 800 MG TABLET PO SCH ×4 (07:50→17:50)
[2018-07-11 08:00] VITALS: BP 131/39
[2018-07-11] MEDS: IRON SUCROSE COMPLEX 100 MG/5 ML ML IV SCH (08:52)
[2018-07-11] MEDS: FAMOTIDINE 20MG TABLET PO SCH (08:52)
[2018-07-11] MEDS: FOLIC ACID/VITAMIN B COMP W-C TABLET PO SCH (08:52)
[2018-07-11] MEDS: FUROSEMIDE 40MG/4ML VIAL IV SCH (08:52)
[2018-07-11] MEDS: SORBITOL 70% SOLN 30ML PO SCH ×2 (09:00→13:48)
[2018-07-11 12:00] VITALS: BP 145/49
[2018-07-11] MEDS: ONDANSETRON HCL 4MG/2ML INJ IV PRN (14:33)
[2018-07-11 16:00] VITALS: BP 145/49
[2018-07-11] MEDS ORDERED: VANCOMYCIN 1 G PREMIX 200 ML IV SCH (16:00)
[2018-07-11] MEDS ORDERED: POTASSIUM CHLORIDE 20MEQ TABLET SR PO NR (18:30)
[2018-07-11 20:32] VITALS: BP 150/50
[2018-07-12 00:27] VITALS: BP 134/42
[2018-07-12 04:00] VITALS: BP 159/53
[2018-07-12] MEDS: BLOOD SUGAR DIAGNOSTIC STRIP TEST SCH ×4 (06:02→20:46)
[2018-07-12] MEDS: LEVOTHYROXINE SODIUM 125MCG TABLET PO SCH (06:55)
[2018-07-12] MEDS: SEVELAMER CARBONATE 800 MG TABLET PO SCH ×4 (07:50→18:37)
[2018-07-12] MEDS: INSULIN LISPRO 100 UNITS/ML SUBCUT SCH ×4 (07:50→20:46)
[2018-07-12 08:03] LABS: HEMATOCRIT 26.5 % (36.0-48.0); HEMOGLOBIN 8.7 g/dL (12.0-16.0); MEAN CORPUSCULAR HEMOGLOBIN 31.6 pg (28.0-32.0); MEAN CORPUSCULAR VOLUME 96.1 fL (81.0-99.0); PLATELET 64 x1000/uL (130-400); RED BLOOD CELL COUNT 2.76 mill/uL (4.2-5.4); RED CELL DISTRIBUTION WIDTH 17.4 % (11.6-14.6)
[2018-07-12 08:08] LABS: TOBRAMYCIN RANDOM 3.1 ucg/mL
[2018-07-12] MEDS: FOLIC ACID/VITAMIN B COMP W-C TABLET PO SCH (09:00)
[2018-07-12 09:22] VITALS: BP 147/48
[2018-07-12] MEDS: IRON SUCROSE COMPLEX 100 MG/5 ML ML IV SCH (09:35)
[2018-07-12] MEDS: FUROSEMIDE 40MG/4ML VIAL IV SCH (09:35)
[2018-07-12] MEDS: SORBITOL 70% SOLN 30ML PO SCH (09:35)
[2018-07-12] MEDS: FAMOTIDINE 20MG TABLET PO SCH (09:36)
[2018-07-12 12:50] VITALS: BP 142/58
[2018-07-12 16:58] VITALS: BP 155/49
[2018-07-12 20:00] VITALS: BP 159/60
[2018-07-13] VITALS: BP 133/56
[2018-07-13 04:00] VITALS: BP 127/46
[2018-07-13] MEDS: BLOOD SUGAR DIAGNOSTIC STRIP TEST SCH ×4 (06:25→21:00)
[2018-07-13] MEDS: LEVOTHYROXINE SODIUM 125MCG TABLET PO SCH (07:07)
[2018-07-13] MEDS: INSULIN LISPRO 100 UNITS/ML SUBCUT SCH ×4 (07:50→21:00)
[2018-07-13 08:02] VITALS: BP 161/48
[2018-07-13] MEDS: FOLIC ACID/VITAMIN B COMP W-C TABLET PO SCH (09:00)
[2018-07-13] MEDS: SORBITOL 70% SOLN 30ML PO SCH ×2 (09:00→10:29)
[2018-07-13] MEDS: IRON SUCROSE COMPLEX 100 MG/5 ML ML IV SCH (10:28)
[2018-07-13] MEDS: CALCIUM CARBONATE 1250MG TABLET (500MG ELEMENTAL CALCIUM) PO SCH (10:28)
[2018-07-13] MEDS: FAMOTIDINE 20MG TABLET PO SCH (10:28)
[2018-07-13] MEDS: SEVELAMER CARBONATE 800 MG TABLET PO SCH ×3 (10:28→17:48)
[2018-07-13] MEDS: FUROSEMIDE 40MG/4ML VIAL IV SCH (10:28)
[2018-07-13 12:00] VITALS: BP 166/64
[2018-07-13] MEDS ORDERED: TOBRAMYCIN SULFATE 80 MG in SODIUM CHLORIDE 0.9% 100 ML IV SCH (14:00)
[2018-07-13 14:11] LABS: PHOSPHORUS 4.1 mg/dL (2.5-4.9)
[2018-07-13 16:00] VITALS: BP 143/44
[2018-07-13] MEDS ORDERED: TUBERCULIN,PURIF.PROT.DERIV. 5 TU/0.1 ML SYR ID ONE (20:00)
[2018-07-14 00:54] VITALS: BP 111/66
[2018-07-14 04:00] VITALS: BP 125/37
[2018-07-14] MEDS: BLOOD SUGAR DIAGNOSTIC STRIP TEST SCH ×4 (07:20→21:01)
[2018-07-14] MEDS: INSULIN LISPRO 100 UNITS/ML SUBCUT SCH ×4 (07:50→21:00)
[2018-07-14 08:16] VITALS: BP 161/45
[2018-07-14] MEDS: FOLIC ACID/VITAMIN B COMP W-C TABLET PO SCH (09:54)
[2018-07-14] MEDS: CALCIUM CARBONATE 1250MG TABLET (500MG ELEMENTAL CALCIUM) PO SCH (09:54)
[2018-07-14] MEDS: SEVELAMER CARBONATE 800 MG TABLET PO SCH ×3 (09:54→19:09)
[2018-07-14] MEDS: FAMOTIDINE 20MG TABLET PO SCH (09:54)
[2018-07-14 12:01] VITALS: BP 133/41
[2018-07-14] MEDS: ACETAMINOPHEN 325MG TABLET PO PRN ×2 (13:13→21:17)
[2018-07-14] MEDS: LEVOTHYROXINE SODIUM 125MCG TABLET PO SCH (13:13)
[2018-07-14] MEDS ORDERED: LIDOCAINE HCL 1% 20ML VIAL (Pyxis) INJ ONE (13:32)
[2018-07-14] MEDS: FUROSEMIDE 40MG/4ML VIAL IV SCH (15:37)
[2018-07-14] MEDS: SORBITOL 70% SOLN 30ML PO SCH (15:44)
[2018-07-14] MEDS ORDERED: IRON SUCROSE COMPLEX 100 MG/5 ML ML IV NR (16:00)
[2018-07-14 16:15] LABS: HEPATITIS B SURFACE ANTIGEN NEGATIVE
[2018-07-14 16:34] VITALS: BP 147/40
[2018-07-14 16:43] LABS: HEPATITIS A AB IGM NEGATIVE (NEGATIVE)
[2018-07-14] MEDS ORDERED: TOBRAMYCIN SULFATE 80 MG in SODIUM CHLORIDE 0.9% 100 ML IV SCH (17:00)
[2018-07-14 20:37] VITALS: BP 145/48
[2018-07-14 20:40] LABS: HEMATOCRIT 24.6 % (36.0-48.0); HEMOGLOBIN 8.1 g/dL (12.0-16.0); MEAN CORPUSCULAR HEMOGLOBIN 30.6 pg (28.0-32.0); MEAN CORPUSCULAR VOLUME 93.4 fL (81.0-99.0); PLATELET 55 x1000/uL (130-400); RED BLOOD CELL COUNT 2.63 mill/uL (4.2-5.4); RED CELL DISTRIBUTION WIDTH 16.8 % (11.6-14.6)
[2018-07-14 20:45] LABS: CHLORIDE 103 mEq/L (98-107)
[2018-07-15 00:56] VITALS: BP 140/50
[2018-07-15 04:00] VITALS: BP 144/43
[2018-07-15] MEDS: BLOOD SUGAR DIAGNOSTIC STRIP TEST SCH ×4 (06:31→21:00)
[2018-07-15] MEDS: INSULIN LISPRO 100 UNITS/ML SUBCUT SCH ×4 (06:31→21:00)
[2018-07-15 08:15] VITALS: BP 148/46
[2018-07-15] MEDS: FUROSEMIDE 40MG/4ML VIAL IV SCH (08:48)
[2018-07-15] MEDS: CALCIUM CARBONATE 1250MG TABLET (500MG ELEMENTAL CALCIUM) PO SCH (08:48)
[2018-07-15] MEDS: LEVOTHYROXINE SODIUM 125MCG TABLET PO SCH (08:48)
[2018-07-15] MEDS: FOLIC ACID/VITAMIN B COMP W-C TABLET PO SCH (08:48)
[2018-07-15] MEDS: SEVELAMER CARBONATE 800 MG TABLET PO SCH ×3 (08:48→17:21)
[2018-07-15] MEDS: FAMOTIDINE 20MG TABLET PO SCH (08:48)
[2018-07-15] MEDS: SORBITOL 70% SOLN 30ML PO SCH (08:51)
[2018-07-15 12:30] VITALS: BP 148/52
[2018-07-15] MEDS ORDERED: TOBRAMYCIN SULFATE 80 MG in SODIUM CHLORIDE 0.9% 100 ML IV SCH (14:00)
[2018-07-15 16:20] VITALS: BP 138/62
[2018-07-15 20:00] VITALS: BP 122/42
[2018-07-15] MEDS: ASCORBIC ACID 250 MG TABLET PO SCH (21:00)
[2018-07-15] MEDS: LACTULOSE 20G/30ML UDC PO SCH (21:00)
[2018-07-16] VITALS: BP 171/46
[2018-07-16 04:00] VITALS: BP 153/37
[2018-07-16] MEDS: LACTULOSE 20G/30ML UDC PO SCH ×3 (06:00→20:50)
[2018-07-16] MEDS: BLOOD SUGAR DIAGNOSTIC STRIP TEST SCH ×4 (07:20→20:19)
[2018-07-16] MEDS: LEVOTHYROXINE SODIUM 125MCG TABLET PO SCH (07:21)
[2018-07-16] MEDS: INSULIN LISPRO 100 UNITS/ML SUBCUT SCH ×4 (07:50→20:19)
[2018-07-16 08:00] VITALS: BP 149/56
[2018-07-16 08:17] LABS: HIV SCREEN 4G Non Reactive (Non Reactive)
[2018-07-16] MEDS: FUROSEMIDE 40MG/4ML VIAL IV SCH (09:21)
[2018-07-16] MEDS: FAMOTIDINE 20MG TABLET PO SCH (09:21)
[2018-07-16] MEDS: SEVELAMER CARBONATE 800 MG TABLET PO SCH ×3 (09:21→17:28)
[2018-07-16] MEDS: ZINC SULFATE 220 MG ( 50 ) CAPSULE PO SCH (09:21)
[2018-07-16] MEDS: FOLIC ACID/VITAMIN B COMP W-C TABLET PO SCH (09:21)
[2018-07-16] MEDS: CALCIUM CARBONATE 1250MG TABLET (500MG ELEMENTAL CALCIUM) PO SCH (09:21)
[2018-07-16] MEDS: ASCORBIC ACID 250 MG TABLET PO SCH ×2 (09:21→20:50)
[2018-07-16] MEDS: SORBITOL 70% SOLN 30ML PO SCH (09:26)
[2018-07-16 12:00] VITALS: BP 126/59
[2018-07-16 16:00] VITALS: BP 140/63
[2018-07-16 20:00] VITALS: BP 166/52
[2018-07-17 00:29] VITALS: BP 187/54
[2018-07-17 04:00] VITALS: BP 167/62
[2018-07-17] MEDS: LACTULOSE 20G/30ML UDC PO SCH ×2 (06:00→14:00)
[2018-07-17] MEDS: BLOOD SUGAR DIAGNOSTIC STRIP TEST SCH ×4 (06:15→21:25)
[2018-07-17] MEDS: LEVOTHYROXINE SODIUM 125MCG TABLET PO SCH (06:28)
[2018-07-17] MEDS: INSULIN LISPRO 100 UNITS/ML SUBCUT SCH ×4 (07:50→21:00)
[2018-07-17 08:00] VITALS: BP 166/61
[2018-07-17 09:58] LABS: HEMOGLOBIN 9.3 g/dL (12.0-16.0); MEAN CORPUSCULAR HEMOGLOBIN 31.4 pg (28.0-32.0); MEAN CORPUSCULAR VOLUME 94.9 fL (81.0-99.0); PLATELET 81 x1000/uL (130-400); RED BLOOD CELL COUNT 2.95 mill/uL (4.2-5.4); RED CELL DISTRIBUTION WIDTH 17.1 % (11.6-14.6)
[2018-07-17] MEDS: CALCIUM CARBONATE 1250MG TABLET (500MG ELEMENTAL CALCIUM) PO SCH (10:11)
[2018-07-17] MEDS: FAMOTIDINE 20MG TABLET PO SCH (10:11)
[2018-07-17] MEDS: ASCORBIC ACID 250 MG TABLET PO SCH ×2 (10:11→20:57)
[2018-07-17] MEDS: SEVELAMER CARBONATE 800 MG TABLET PO SCH ×3 (10:11→17:50)
[2018-07-17] MEDS: FOLIC ACID/VITAMIN B COMP W-C TABLET PO SCH (10:11)
[2018-07-17] MEDS: FUROSEMIDE 40MG/4ML VIAL IV SCH (10:11)
[2018-07-17] MEDS: ZINC SULFATE 220 MG ( 50 ) CAPSULE PO SCH (10:11)
[2018-07-17] MEDS: SORBITOL 70% SOLN 30ML PO SCH (10:11)
[2018-07-17 12:00] VITALS: BP 146/49
[2018-07-17] MEDS ORDERED: BISACODYL 5MG TABLET PO PRN (15:15)
[2018-07-17] MEDS ORDERED: FOLIC ACID/VITAMIN B COMP W-C TABLET PO SCH (15:30)
[2018-07-17] MEDS ORDERED: HEPARIN SODIUM 1,000 UNIT/1ML VIAL IV NR (15:45)
[2018-07-17 16:00] VITALS: BP 137/55
[2018-07-17] MEDS: MULTIVITAMINS,THER W-MINERALS TABLET PO SCH (16:18)
[2018-07-17] MEDS: ACETAMINOPHEN 325MG TABLET PO PRN ×2 (16:19→20:57)
[2018-07-17] MEDS ORDERED: MEROPENEM 500 MG in SODIUM CHLORIDE 0.9% 50 ML IV SCH (17:00)
[2018-07-17 20:00] VITALS: BP 104/41
[2018-07-17] MEDS ORDERED: EPOETIN ALFA 4000UNITS/ML VIAL SUBCUT SCH (21:00)
[2018-07-17] MEDS ORDERED: EPOETIN ALFA 10000UNITS/ML VIAL SUBCUT NR (21:00)
[2018-07-17] MEDS: MEROPENEM 500 MG in SODIUM CHLORIDE 0.9% 50 ML IV SCH (21:06)
[2018-07-18] VITALS: BP 105/41
[2018-07-18 04:00] VITALS: BP 153/56
[2018-07-18] MEDS: LEVOTHYROXINE SODIUM 125MCG TABLET PO SCH (04:43)
[2018-07-18] MEDS: SEVELAMER CARBONATE 800 MG TABLET PO SCH ×3 (04:43→18:44)
[2018-07-18] MEDS: BLOOD SUGAR DIAGNOSTIC STRIP TEST SCH ×4 (07:20→21:00)
[2018-07-18] MEDS: INSULIN LISPRO 100 UNITS/ML SUBCUT SCH ×4 (07:50→21:00)
[2018-07-18 08:00] VITALS: BP 153/49
[2018-07-18] MEDS: ASCORBIC ACID 250 MG TABLET PO SCH ×2 (09:00→21:29)
[2018-07-18] MEDS: FUROSEMIDE 40MG/4ML VIAL IV SCH ×2 (09:00→09:09)
[2018-07-18 12:00] VITALS: BP 145/35
[2018-07-18] MEDS: ZINC SULFATE 220 MG ( 50 ) CAPSULE PO SCH (12:38)
[2018-07-18] MEDS: MULTIVITAMINS,THER W-MINERALS TABLET PO SCH (12:38)
[2018-07-18] MEDS: FOLIC ACID/VITAMIN B COMP W-C TABLET PO SCH (12:39)
[2018-07-18] MEDS: CALCIUM CARBONATE 1250MG TABLET (500MG ELEMENTAL CALCIUM) PO SCH (12:39)
[2018-07-18] MEDS: FAMOTIDINE 20MG TABLET PO SCH (12:39)
[2018-07-18 16:00] VITALS: BP 154/52
[2018-07-18 20:01] VITALS: BP 156/62
[2018-07-18] MEDS: MEROPENEM 500 MG in SODIUM CHLORIDE 0.9% 50 ML IV SCH (21:29)
[2018-07-19] VITALS: BP 146/47
[2018-07-19 04:00] VITALS: BP 147/55
[2018-07-19] MEDS: BLOOD SUGAR DIAGNOSTIC STRIP TEST SCH ×4 (06:28→21:47)
[2018-07-19] MEDS: LEVOTHYROXINE SODIUM 125MCG TABLET PO SCH (07:04)
[2018-07-19] MEDS: INSULIN LISPRO 100 UNITS/ML SUBCUT SCH ×4 (07:49→21:00)
[2018-07-19] MEDS: FUROSEMIDE 40MG/4ML VIAL IV SCH (10:53)
[2018-07-19 10:54] VITALS: BP 138/53
[2018-07-19] MEDS: CALCIUM CARBONATE 1250MG TABLET (500MG ELEMENTAL CALCIUM) PO SCH (10:54)
[2018-07-19] MEDS: FOLIC ACID/VITAMIN B COMP W-C TABLET PO SCH (10:54)
[2018-07-19] MEDS: ASCORBIC ACID 250 MG TABLET PO SCH ×3 (10:54→21:12)
[2018-07-19] MEDS: MULTIVITAMINS,THER W-MINERALS TABLET PO SCH (10:54)
[2018-07-19] MEDS: SEVELAMER CARBONATE 800 MG TABLET PO SCH ×3 (10:54→18:33)
[2018-07-19] MEDS: ZINC SULFATE 220 MG ( 50 ) CAPSULE PO SCH (10:54)
[2018-07-19] MEDS: ACETAMINOPHEN 325MG TABLET PO PRN (10:54)
[2018-07-19] MEDS: FAMOTIDINE 20MG TABLET PO SCH (10:54)
[2018-07-19 20:00] VITALS: BP 154/51
[2018-07-19] MEDS: MEROPENEM 500 MG in SODIUM CHLORIDE 0.9% 50 ML IV SCH (21:12)
[2018-07-20] VITALS: BP 139/46
[2018-07-20] MEDS ORDERED: IRON SUCROSE COMPLEX 100 MG/5 ML ML IV NR ×2 (02:00→10:00)
[2018-07-20 04:00] VITALS: BP 160/51
[2018-07-20] MEDS ORDERED: TUBERCULIN,PURIF.PROT.DERIV. 5 TU/0.1 ML SYR ID ONE (06:00)
[2018-07-20] MEDS: LEVOTHYROXINE SODIUM 125MCG TABLET PO SCH (06:35)
[2018-07-20] MEDS: BLOOD SUGAR DIAGNOSTIC STRIP TEST SCH ×2 (06:37→12:20)
[2018-07-20] MEDS: INSULIN LISPRO 100 UNITS/ML SUBCUT SCH ×2 (07:36→12:25)
[2018-07-20] MEDS: SEVELAMER CARBONATE 800 MG TABLET PO SCH (07:50)
[2018-07-20 08:00] VITALS: BP 142/47
[2018-07-20] MEDS: ASCORBIC ACID 250 MG TABLET PO SCH (09:00)
[2018-07-20] MEDS: CALCIUM CARBONATE 1250MG TABLET (500MG ELEMENTAL CALCIUM) PO SCH (09:00)
[2018-07-20] MEDS: FOLIC ACID/VITAMIN B COMP W-C TABLET PO SCH (09:00)
[2018-07-20] MEDS: FAMOTIDINE 20MG TABLET PO SCH (09:00)
[2018-07-20] MEDS: ZINC SULFATE 220 MG ( 50 ) CAPSULE PO SCH (09:00)
[2018-07-20] MEDS: MULTIVITAMINS,THER W-MINERALS TABLET PO SCH (09:00)
[2018-07-20] MEDS: FUROSEMIDE 40MG/4ML VIAL IV SCH (09:00)
[2018-07-20 09:39] LABS: HEMATOCRIT 30.6 % (36.0-48.0); MEAN CORPUSCULAR HEMOGLOBIN 31.1 pg (28.0-32.0); MEAN CORPUSCULAR VOLUME 94.8 fL (81.0-99.0); PLATELET 90 x1000/uL (130-400); RED BLOOD CELL COUNT 3.22 mill/uL (4.2-5.4); RED CELL DISTRIBUTION WIDTH 16.6 % (11.6-14.6)
[2018-07-20] MEDS ORDERED: EPOETIN ALFA 4000UNITS/ML VIAL SUBCUT NR (10:00)
[2018-07-20] MEDS ORDERED: HEPATITIS B VIRUS VACCINE-PF 10 MCG/0.5 VIAL IM ONE (10:00)
[2018-07-20] MEDS ORDERED: HEPARIN SODIUM 1,000 UNIT/1ML VIAL IV NR (10:45)
[2018-07-20 12:21] VITALS: BP 95/39
[2018-07-20 14:02] VITALS: BP 95/39
== END 2018-07-20 13:20 | disposition home or self-care (01) | DRG 871 ==
LOC: ER 15:38 → 6WST 19:14 → EDBEDREQ 19:17 → ENRESERV 20:42
PROVIDERS: ADMIT Internal Medicine; ATTEND Internal Medicine
PROC: 5A1D70Z Performance of Urinary Filtration, Intermittent, Less than 6 Hours Per Day (ICD-10-PCS; 2018-07-08)
PROC: 5A1D70Z Performance of Urinary Filtration, Intermittent, Less than 6 Hours Per Day (ICD-10-PCS; 2018-07-09)
PROC: 5A1D70Z Performance of Urinary Filtration, Intermittent, Less than 6 Hours Per Day (ICD-10-PCS; 2018-07-10)
PROC: 5A1D70Z Performance of Urinary Filtration, Intermittent, Less than 6 Hours Per Day (ICD-10-PCS; 2018-07-13)
PROC: 02HV33Z Insertion of Infusion Device into Superior Vena Cava, Percutaneous Approach (ICD-10-PCS; principal; 2018-07-14)
PROC: B518ZZA Fluoroscopy of Superior Vena Cava, Guidance (ICD-10-PCS; 2018-07-14)
PROC: B548ZZA Ultrasonography of Superior Vena Cava, Guidance (ICD-10-PCS; 2018-07-14)
PROC: 5A1D70Z Performance of Urinary Filtration, Intermittent, Less than 6 Hours Per Day (ICD-10-PCS; 2018-07-14)
PROC: 5A1D70Z Performance of Urinary Filtration, Intermittent, Less than 6 Hours Per Day (ICD-10-PCS; 2018-07-17)
PROC: 5A1D70Z Performance of Urinary Filtration, Intermittent, Less than 6 Hours Per Day (ICD-10-PCS; 2018-07-20)
DX: A41.9 Sepsis, unspecified organism (principal); I50.43 Acute on chronic combined systolic (congestive) and diastolic (congestive) heart failure; L89.154 Pressure ulcer of sacral region, stage 4; N18.6 End stage renal disease; G93.41 Metabolic encephalopathy; I13.2 Hypertensive heart and chronic kidney disease with heart failure and with stage 5 chronic kidney disease, or end stage renal disease; N39.0 Urinary tract infection, site not specified; E46 Unspecified protein-calorie malnutrition; E72.20 Disorder of urea cycle metabolism, unspecified; E11.51 Type 2 diabetes mellitus with diabetic peripheral angiopathy without gangrene; Z16.12 Extended spectrum beta lactamase (ESBL) resistance; H93.19 Tinnitus, unspecified ear; D69.6 Thrombocytopenia, unspecified; B96.89 Other specified bacterial agents as the cause of diseases classified elsewhere; E66.9 Obesity, unspecified; E87.6 Hypokalemia; K59.00 Constipation, unspecified; E87.5 Hyperkalemia; E11.22 Type 2 diabetes mellitus with diabetic chronic kidney disease; D64.9 Anemia, unspecified; Z99.2 Dependence on renal dialysis; Z89.511 Acquired absence of right leg below knee; Z89.512 Acquired absence of left leg below knee; Z87.440 Personal history of urinary (tract) infections; Z86.718 Personal history of other venous thrombosis and embolism; Z91.15 Patient's noncompliance with renal dialysis; Z91.19 Patient's noncompliance with other medical treatment and regimen; Z68.33 Body mass index [BMI] 33.0-33.9, adult; Z88.5 Allergy status to narcotic agent; Z79.899 Other long term (current) drug therapy
CPT/HCPCS: 36415; 36569; 71045; 76770; 76937; 77001; 80048; 80061; 80200; 82140; 82550; 82553; 82962; 83735; 84100; 84132; 84145; 84439; 84443; 84484; 85027; 86705; 86706; 86709; 86803; 87077; 87186; 87340; 87389; 90585; 90743; 93005; 93970; 94644; 96374; 96375; 99285; A6261; C1725; C1893; J0885; J1644; J1815; J1940; J2185; J2405; J2543; J3260; J3370; J3480; J3490; J7030; J7050; J7060; J7611

== ENCOUNTER 2019-03-02 20:16 | Inpatient (IN) | payer OTHER, MEDICAID ==
[~2019-03-02] VITALS: Ht 165.1 cm; Wt 84.8 kg
[~2019-03-02 20:16] MED LIST changes: +APIX5TAB PO; -OMEP20CA10 PO; +OMEP20CA5 PO
[2019-03-02] MEDS ORDERED: NITROGLYCERIN 0.4MG TABLET SL SL PRN (22:45)
[2019-03-02] MEDS ORDERED: ASPIRIN 81MG TABLET PO ONE (22:45)
[2019-03-02 23:01] LABS: BASOPHILS % 1.8 % (0.0-2.0); EOSINOPHILS % 3.4 % (0.0-5.0); HEMATOCRIT. 31.5 % (36.0-48.0); HEMOGLOBIN. 10.4 g/dL (12.0-16.0); LYMPHOCYTES % 25.4 % (20.0-50.0); MEAN CORPUSCULAR HEMOGLOBIN 32.1 pg (28.0-32.0); MEAN CORPUSCULAR VOLUME 96.9 fL (81.0-99.0); MEAN PLATELET VOLUME 9.1 fl (7.4-10.4); MONOCYTES % 12.4 % (2.0-8.0); PLATELET 96 x1000/uL (130-400); RED BLOOD CELL COUNT 3.25 mill/uL (4.2-5.4); RED CELL DISTRIBUTION WIDTH 14.7 % (11.6-14.6)
[2019-03-02 23:03] LABS: CHLORIDE 94 mEq/L (98-107)
[2019-03-02 23:05] LABS: PARTIAL THROMBOPLASTIN TIME 39.3 sec (23.4-31.0); PROTHROMBIN TIME 10.8 sec (9.6-11.0)
[2019-03-02] MEDS ORDERED: FUROSEMIDE 40MG/4ML VIAL IVP ONE (23:30)
[2019-03-03] MEDS ORDERED: CALCIUM CHLORIDE 1GM/10ML SYR IV NR (00:30)
[2019-03-03] MEDS ORDERED: ALBUTEROL (0.083%) 2.5MG/3ML NEB HHN NR (00:30)
[2019-03-03] MEDS ORDERED: DEXTROSE 50% WATER 50ML SYRINGE IV NR (00:30)
[2019-03-03] MEDS ORDERED: INSULIN REGULAR (HUMULIN R) 300UNITS/3ML IV NR (00:30)
[2019-03-03] MEDS ORDERED: SODIUM BICARBONATE 8.4% 1 MEQ/ML 50ML SYR IV NR (00:30)
[2019-03-03] MEDS ORDERED: DEXT 10% WATER 1,000 ML IV ONE (01:00)
[2019-03-03 03:52] LABS: CLARITY URINE CLOUDY (CLEAR); COLOR URINE YELLOW (YELLOW); KETONES URINE NEGATIVE (NEGATIVE); LEUKOCYTE ESTERASE URINE 3+ (NEGATIVE); NITRITE URINE NEGATIVE (NEGATIVE); OCCULT BLOOD URINE 1+ (NEGATIVE); PH URINE 7.5 (4.5-8.0); PROTEIN URINE 3+ (NEGATIVE); UROBILINOGEN URINE 0.2 E.U./dL (0.2-1.0)
[2019-03-03 03:55] VITALS: BP 138/46
[2019-03-03 04:00] VITALS: BP 138/46
[2019-03-03] MEDS ORDERED: HYDROCODONE/ACETAMINOPHEN 5/325MG TABLET PO PRN (04:45)
[2019-03-03] MEDS ORDERED: VALS40TA11 PO (05:40)
[2019-03-03] MEDS ORDERED: HYDR200T80 PO (05:40)
[2019-03-03] MEDS ORDERED: LORA5TAB8 PO (05:40)
[2019-03-03 08:00] VITALS: BP 146/46
[2019-03-03] MEDS ORDERED: ACETAMINOPHEN 650MG SUPP PR PRN (10:45)
[2019-03-03] MEDS ORDERED: IPRATROPIUM/ALBUTEROL 0.5-3(2.5)MG/3ML NEB INH PRN (10:45)
[2019-03-03] MEDS ORDERED: MAGNESIUM/ALUMINUM HYDROXIDE/SIMETHICONE 30ML UDC PO PRN (10:45)
[2019-03-03] MEDS ORDERED: NA PHOS,M-B/NA PHOS,DI-BA ENEMA 118ML PR PRN (10:45)
[2019-03-03] MEDS ORDERED: DOCUSATE SODIUM 100MG CAPSULE PO PRN (10:45)
[2019-03-03] MEDS ORDERED: ONDANSETRON HCL 4MG/2ML INJ IV PRN (10:45)
[2019-03-03] MEDS ORDERED: CLONIDINE 0.1MG TABLET PO PRN (10:45)
[2019-03-03] MEDS ORDERED: DIPHENHYDRAMINE 50MG/ML VIAL IV PRN (10:45)
[2019-03-03] MEDS ORDERED: LORAZEPAM 0.5MG TABLET PO PRN (10:45)
[2019-03-03] MEDS ORDERED: GUAIFENESIN 200MG/10ML SUGAR FREE UDC PO PRN (10:45)
[2019-03-03] MEDS: METRONIDAZOLE 500MG TABLET PO SCH ×2 (11:43→20:52)
[2019-03-03 12:00] VITALS: BP 150/51
[2019-03-03] MEDS: MEROPENEM 500 MG in SODIUM CHLORIDE 0.9% 50 ML IV SCH (12:33)
[2019-03-03] MEDS ORDERED: DEXTROSE 50% WATER 50ML SYRINGE IV PRN (15:45)
[2019-03-03 15:53] LABS: HEMATOCRIT 30.6 % (36.0-48.0); HEMOGLOBIN 10.2 g/dL (12.0-16.0); MEAN CORPUSCULAR HEMOGLOBIN 32.2 pg (28.0-32.0); PLATELET 102 x1000/uL (130-400); RED BLOOD CELL COUNT 3.16 mill/uL (4.2-5.4); RED CELL DISTRIBUTION WIDTH 15.2 % (11.6-14.6)
[2019-03-03 15:58] LABS: CHLORIDE 95 mEq/L (98-107)
[2019-03-03 16:00] VITALS: BP 157/41
[2019-03-03] MEDS: BLOOD SUGAR DIAGNOSTIC STRIP TEST SCH ×2 (17:00→21:01)
[2019-03-03 20:00] VITALS: BP 145/54
[2019-03-03] MEDS: ACETAMINOPHEN 325MG TABLET PO PRN (22:02)
[2019-03-04] VITALS: BP 151/54
[2019-03-04 04:00] VITALS: BP 152/56
[2019-03-04] MEDS: BLOOD SUGAR DIAGNOSTIC STRIP TEST SCH ×4 (06:33→20:55)
[2019-03-04 08:00] VITALS: BP 139/45
[2019-03-04] MEDS: METRONIDAZOLE 500MG TABLET PO SCH ×2 (08:14→21:12)
[2019-03-04 12:00] VITALS: BP 118/44
[2019-03-04 16:08] LABS: BASOPHILS % 1.3 % (0.0-2.0); EOSINOPHILS % 2.9 % (0.0-5.0); HEMATOCRIT. 30.7 % (36.0-48.0); HEMOGLOBIN. 10.3 g/dL (12.0-16.0); LYMPHOCYTES % 17.8 % (20.0-50.0); MEAN CORPUSCULAR HEMOGLOBIN 32.2 pg (28.0-32.0); MEAN CORPUSCULAR VOLUME 95.7 fL (81.0-99.0); MEAN PLATELET VOLUME 8.7 fl (7.4-10.4); MONOCYTES % 11.3 % (2.0-8.0); NEUTROPHILS % 66.7 % (40.0-76.0); PLATELET 88 x1000/uL (130-400)
[2019-03-04 16:12] LABS: CHLORIDE 104 mEq/L (98-107)
[2019-03-04 16:20] LABS: LDL CHOLESTEROL 42 mg/dL (5-100)
[2019-03-04 16:21] LABS: HDL CHOLESTEROL 58 mg/dL (40-59)
[2019-03-04] MEDS: MEROPENEM 500 MG in SODIUM CHLORIDE 0.9% 50 ML IV SCH (17:11)
[2019-03-04 20:00] VITALS: BP 140/45
[2019-03-04] MEDS: CARVEDILOL 3.125 MG TABLET PO SCH (21:00)
[2019-03-05] VITALS: BP 143/45
[2019-03-05 04:00] VITALS: BP 135/85
[2019-03-05] MEDS: BLOOD SUGAR DIAGNOSTIC STRIP TEST SCH ×4 (05:50→21:20)
[2019-03-05] MEDS: LEVOTHYROXINE SODIUM 112MCG TABLET PO SCH ×2 (06:25→07:10)
[2019-03-05 08:00] VITALS: BP 141/49
[2019-03-05] MEDS: METRONIDAZOLE 500MG TABLET PO SCH ×2 (11:02→21:20)
[2019-03-05] MEDS: SEVELAMER CARBONATE 800 MG TABLET PO SCH (11:02)
[2019-03-05] MEDS: CARVEDILOL 3.125 MG TABLET PO SCH ×2 (11:02→21:20)
[2019-03-05] MEDS: HYDROXYCHLOROQUINE SULFATE 200MG TABLET PO SCH (11:03)
[2019-03-05 12:00] VITALS: BP 144/45
[2019-03-05] MEDS: MEROPENEM 500 MG in SODIUM CHLORIDE 0.9% 50 ML IV SCH (12:40)
[2019-03-05 12:54] LABS: BASOPHILS % 2.4 % (0.0-2.0); EOSINOPHILS % 3.3 % (0.0-5.0); HEMATOCRIT. 32.7 % (36.0-48.0); HEMOGLOBIN. 10.9 g/dL (12.0-16.0); LYMPHOCYTES % 19.5 % (20.0-50.0); MEAN CORPUSCULAR HEMOGLOBIN 32.4 pg (28.0-32.0); MEAN CORPUSCULAR VOLUME 97.5 fL (81.0-99.0); NEUTROPHILS % 63.8 % (40.0-76.0); PLATELET 100 x1000/uL (130-400); RED BLOOD CELL COUNT 3.35 mill/uL (4.2-5.4); RED CELL DISTRIBUTION WIDTH 15.4 % (11.6-14.6)
[2019-03-05 16:00] VITALS: BP 115/54
[2019-03-05 20:00] VITALS: BP 138/45
[2019-03-05] MEDS: CEFAZOLIN 1000MG PREMIX 50 ML IV SCH (21:20)
[2019-03-05] MEDS: ACETAMINOPHEN 325MG TABLET PO PRN (23:34)
[2019-03-06] VITALS: BP 143/46
[2019-03-06 04:00] VITALS: BP 125/43
[2019-03-06] MEDS: CEFAZOLIN 1000MG PREMIX 50 ML IV SCH (06:05)
[2019-03-06] MEDS: LEVOTHYROXINE SODIUM 112MCG TABLET PO SCH (06:17)
[2019-03-06] MEDS: BLOOD SUGAR DIAGNOSTIC STRIP TEST SCH ×2 (06:17→11:56)
[2019-03-06 08:00] VITALS: BP 120/38
[2019-03-06] MEDS: HYDROXYCHLOROQUINE SULFATE 200MG TABLET PO SCH (08:43)
[2019-03-06] MEDS: SEVELAMER CARBONATE 800 MG TABLET PO SCH (08:43)
[2019-03-06] MEDS: METRONIDAZOLE 500MG TABLET PO SCH (08:44)
[2019-03-06] MEDS: CARVEDILOL 3.125 MG TABLET PO SCH ×2 (08:44→08:56)
[2019-03-06 12:00] VITALS: BP 123/38
[2019-03-06 15:33] LABS: BASOPHILS % 1.3 % (0.0-2.0); EOSINOPHILS % 5.3 % (0.0-5.0); HEMOGLOBIN. 10.1 g/dL (12.0-16.0); LYMPHOCYTES % 13.7 % (20.0-50.0); MEAN CORPUSCULAR HEMOGLOBIN 32.7 pg (28.0-32.0); MEAN CORPUSCULAR VOLUME 97.5 fL (81.0-99.0); MEAN PLATELET VOLUME 8.7 fl (7.4-10.4); MONOCYTES % 5.7 % (2.0-8.0); PLATELET 73 x1000/uL (130-400); RED BLOOD CELL COUNT 3.07 mill/uL (4.2-5.4); RED CELL DISTRIBUTION WIDTH 15.4 % (11.6-14.6)
[2019-03-06] MEDS: ACETAMINOPHEN 325MG TABLET PO PRN (15:54)
[2019-03-06 16:00] VITALS: BP 120/49
[2019-03-06 16:18] VITALS: BP 120/49
[2019-03-07] MEDS ORDERED: CEFAZOLIN 1000MG PREMIX 50 ML IV SCH (09:00)
== END 2019-03-06 18:00 | disposition home or self-care (01) | DRG 291 ==
LOC: ER 20:16 → 8WST 03-03 01:10 → EDBEDREQTM 03-03 01:24 → EDBEDREQ 03-03 01:24 → ENRESERV 03-03 02:33
PROVIDERS: ADMIT Internal Medicine; ATTEND Internal Medicine
PROC: 5A1D70Z Performance of Urinary Filtration, Intermittent, Less than 6 Hours Per Day (ICD-10-PCS; principal; 2019-03-04)
PROC: 5A1D70Z Performance of Urinary Filtration, Intermittent, Less than 6 Hours Per Day (ICD-10-PCS; 2019-03-05)
DX: I13.2 Hypertensive heart and chronic kidney disease with heart failure and with stage 5 chronic kidney disease, or end stage renal disease (principal); N18.6 End stage renal disease; I50.43 Acute on chronic combined systolic (congestive) and diastolic (congestive) heart failure; N39.0 Urinary tract infection, site not specified; E44.0 Moderate protein-calorie malnutrition; G93.40 Encephalopathy, unspecified; E87.1 Hypo-osmolality and hyponatremia; D61.818 Other pancytopenia; I82.B12 Acute embolism and thrombosis of left subclavian vein; E11.22 Type 2 diabetes mellitus with diabetic chronic kidney disease; E87.5 Hyperkalemia; E11.649 Type 2 diabetes mellitus with hypoglycemia without coma; E11.51 Type 2 diabetes mellitus with diabetic peripheral angiopathy without gangrene; M19.90 Unspecified osteoarthritis, unspecified site; Z16.12 Extended spectrum beta lactamase (ESBL) resistance; I42.9 Cardiomyopathy, unspecified; Z99.2 Dependence on renal dialysis; Z86.73 Personal history of transient ischemic attack (TIA), and cerebral infarction without residual deficits; Z91.19 Patient's noncompliance with other medical treatment and regimen; Z89.512 Acquired absence of left leg below knee; Z89.511 Acquired absence of right leg below knee; Z79.899 Other long term (current) drug therapy; Z68.31 Body mass index [BMI] 31.0-31.9, adult
CPT/HCPCS: 36415; 71045; 80048; 80051; 80061; 82962; 83880; 84484; 85027; 87077; 87186; 93005; 93306; 93970; 96365; 96375; 99285; J0690; J1815; J1940; J2185; J3490; J7050

== ENCOUNTER 2019-07-18 15:45 | Inpatient (IN) | payer MEDICARE, MEDICAID ==
[~2019-07-18] VITALS: Ht 167.6 cm; Wt 86.4 kg
[~2019-07-18 15:45] MED LIST changes: +HYDR200T80 PO; +LORA5TAB8 PO; +VALS40TA11 PO
[2019-07-18] MEDS ORDERED: ONDANSETRON HCL 4MG/2ML INJ IV STA (18:37)
[2019-07-18 19:19] LABS: BASOPHILS % 2.1 % (0.0-2.0); HEMATOCRIT. 32.5 % (36.0-48.0); HEMOGLOBIN. 10.5 g/dL (12.0-16.0); LYMPHOCYTES % 25.4 % (20.0-50.0); MEAN CORPUSCULAR HEMOGLOBIN 31.5 pg (28.0-32.0); MEAN CORPUSCULAR VOLUME 97.7 fL (81.0-99.0); MEAN PLATELET VOLUME 10.8 fl (7.4-10.4); MONOCYTES % 11.4 % (2.0-8.0); NEUTROPHILS % 57.1 % (40.0-76.0); PLATELET 57 x1000/uL (130-400); RED BLOOD CELL COUNT 3.33 mill/uL (4.2-5.4); RED CELL DISTRIBUTION WIDTH 17.3 % (11.6-14.6)
[2019-07-18 19:24] LABS: CHLORIDE 106 mEq/L (98-107)
[2019-07-18 19:28] LABS: ETHANOL BLOOD < 10 mg/dL
[2019-07-18] MEDS: DEXTROSE 50% WATER 50ML SYRINGE IV ONE ×2 (20:01→20:27)
[2019-07-18] MEDS ORDERED: SODIUM POLYSTYRENE SULFONATE 15 G/60 ML BOT PO ONE (20:45)
[2019-07-18] MEDS ORDERED: SODIUM BICARBONATE 8.4% 1 MEQ/ML 50ML SYR IV ONE (20:45)
[2019-07-18] MEDS ORDERED: CALCIUM CHLORIDE 1GM/10ML SYR IV ONE (20:45)
[2019-07-19] MEDS: DEXTROSE 50% WATER 50ML SYRINGE IV PRN ×2 (08:10→17:39)
[2019-07-19] MEDS ORDERED: DIPHENHYDRAMINE 50MG/ML VIAL IV PRN (13:15)
[2019-07-19] MEDS ORDERED: HYDROCODONE/ACETAMINOPHEN 5/325MG TABLET PO PRN (13:15)
[2019-07-19] MEDS ORDERED: ACETAMINOPHEN 650MG SUPP PR PRN (13:15)
[2019-07-19] MEDS ORDERED: IPRATROPIUM/ALBUTEROL 0.5-3(2.5)MG/3ML NEB NEB PRN (13:15)
[2019-07-19] MEDS ORDERED: GUAIFENESIN 200MG/10ML SUGAR FREE UDC PO PRN (13:15)
[2019-07-19] MEDS ORDERED: ACETAMINOPHEN 325MG TABLET PO PRN (13:15)
[2019-07-19] MEDS ORDERED: LORAZEPAM 2MG/ML CPJ IV PRN (13:15)
[2019-07-19] MEDS ORDERED: MAGNESIUM/ALUMINUM HYDROXIDE/SIMETHICONE 30ML UDC PO PRN (13:15)
[2019-07-19] MEDS ORDERED: ACETAMINOPHEN 650MG/20.3ML UDC GT PRN (13:15)
[2019-07-19] MEDS ORDERED: ONDANSETRON HCL 4MG/2ML INJ IV PRN (13:15)
[2019-07-19] MEDS ORDERED: CLONIDINE 0.1MG TABLET PO PRN (13:15)
[2019-07-19] MEDS ORDERED: LORAZEPAM 0.5MG TABLET PO PRN (13:15)
[2019-07-19] MEDS: INSULIN LISPRO 100 UNITS/ML SUBCUT SCH ×3 (13:20→20:00)
[2019-07-19 14:54] LABS: BG BASE EXCESS -4.2 mmol/L (-2.0-2.0); BG CARBOXYHEMOGLOBIN 0.6 % (0.5-1.5); BG DEOXYHEMOGLOBIN 7.3 % (0.0-5.0); BG FRACTION INSPIRED OXYGEN 21; BG HCO3 ACT 21.3 mmol/L (22.0-26.0); BG METHEMOGLOBIN 0.1 % (0.0-1.5); BG OXYGEN SATURATION 92.6 % (92.0-98.5); BG PCO2 40.6 mmHg (35.0-45.0); BG PH 7.338 (7.350-7.450); BG PO2 70.7 mmHg (75.0-100.0); BG SAMPLE SITE RIGHT BRACHIAL; BG TOTAL HEMOGLOBIN 9.9 g/dL (12.0-18.0); BG VENT MODE ROOM AIR
[2019-07-19] MEDS ORDERED: BLOOD SUGAR DIAGNOSTIC STRIP TEST SCH (17:00)
[2019-07-19 17:30] VITALS: BP 136/53
[2019-07-19 18:00] VITALS: BP 134/58
[2019-07-19 19:22] LABS: BASOPHILS % 1.5 % (0.0-2.0); EOSINOPHILS % 5.9 % (0.0-5.0); HEMATOCRIT. 27.9 % (36.0-48.0); HEMOGLOBIN. 9.2 g/dL (12.0-16.0); LYMPHOCYTES % 21.8 % (20.0-50.0); MEAN CORPUSCULAR HEMOGLOBIN 32.2 pg (28.0-32.0); MEAN PLATELET VOLUME 11.1 fl (7.4-10.4); MONOCYTES % 10.7 % (2.0-8.0); NEUTROPHILS % 60.1 % (40.0-76.0); RED BLOOD CELL COUNT 2.85 mill/uL (4.2-5.4); RED CELL DISTRIBUTION WIDTH 17.5 % (11.6-14.6)
[2019-07-19 19:27] LABS: INR 1.2; PROTHROMBIN TIME 11.8 sec (9.6-11.0)
[2019-07-19 19:42] LABS: CREATINE KINASE MB FRACTION 2.2 ng/mL (0.5-3.6)
[2019-07-19 20:00] VITALS: BP 119/49
[2019-07-19] MEDS ORDERED: MEROPENEM 500 MG in SODIUM CHLORIDE 0.9% 50 ML IV SCH (20:00)
[2019-07-19] MEDS: BLOOD SUGAR DIAGNOSTIC STRIP TEST SCH (20:00)
[2019-07-19 21:26] LABS: CLARITY URINE TURBID (CLEAR); COLOR URINE YELLOW (YELLOW); KETONES URINE NEGATIVE (NEGATIVE); LEUKOCYTE ESTERASE URINE 3+ (NEGATIVE); NITRITE URINE NEGATIVE (NEGATIVE); OCCULT BLOOD URINE 2+ (NEGATIVE); PROTEIN URINE 3+ (NEGATIVE); SPECIFIC GRAVITY URINE 1.014 (1.005-1.030); UROBILINOGEN URINE 0.2 E.U./dL (0.2-1.0)
[2019-07-19 21:42] LABS: *AMPHETAMINES SCREEN URINE NEGATIVE (NEGATIVE); *BARBITURATES SCREEN URINE NEGATIVE (NEGATIVE); *BENZODIAZEPINES SCREEN URINE NEGATIVE (NEGATIVE); *COCAINE SCREEN URINE NEGATIVE (NEGATIVE); METHADONE URINE SCREEN NEGATIVE (NEGATIVE)
[2019-07-19 21:43] LABS: CANNABINOID URINE SCREEN NEGATIVE (NEGATIVE); OPIATES URINE SCREEN NEGATIVE (NEGATIVE); PHENCYCLIDINE URINE SCREEN NEGATIVE (NEGATIVE)
[2019-07-19 22:00] VITALS: BP 128/51
[2019-07-20] VITALS (17 sets, daily range): BP systolic 114–140; BP diastolic 41–85
[2019-07-20] MEDS: METRONIDAZOLE 500MG TABLET PO SCH ×2 (00:23→10:20)
[2019-07-20] MEDS: INSULIN LISPRO 100 UNITS/ML SUBCUT SCH ×6 (04:00→21:51)
[2019-07-20] MEDS: BLOOD SUGAR DIAGNOSTIC STRIP TEST SCH ×6 (04:00→21:51)
[2019-07-20] MEDS: DEXTROSE 50% WATER 50ML SYRINGE IV PRN (04:42)
[2019-07-20 07:49] LABS: HEMATOCRIT. 29.8 % (36.0-48.0); HEMOGLOBIN. 9.6 g/dL (12.0-16.0); MEAN CORPUSCULAR HEMOGLOBIN 31.6 pg (28.0-32.0); MEAN CORPUSCULAR VOLUME 98.5 fL (81.0-99.0); MEAN PLATELET VOLUME 10.8 fl (7.4-10.4); RED BLOOD CELL COUNT 3.03 mill/uL (4.2-5.4); RED CELL DISTRIBUTION WIDTH 17.6 % (11.6-14.6)
[2019-07-20 07:53] LABS: PLATELET 40 x1000/uL (130-400)
[2019-07-20 09:15] LABS: CHLORIDE 111 mEq/L (98-107)
[2019-07-20 09:24] LABS: CREATINE KINASE 27 IU/L (26-192); HDL CHOLESTEROL 36 mg/dL (40-59); LDL CHOLESTEROL 46 mg/dL (5-100)
[2019-07-20 09:26] LABS: T4 FREE 0.82 ng/dL (0.76-1.46)
[2019-07-20 09:29] LABS: CREATINE KINASE MB FRACTION 2.3 ng/mL (0.5-3.6)
[2019-07-20 12:21] LABS: TOTAL IRON BINDING CAPACITY 106 ug/dL (250-450)
[2019-07-20 12:50] LABS: HEPATITIS B SURFACE ANTIGEN NEGATIVE
[2019-07-20 13:19] LABS: HEPATITIS A AB IGM NEGATIVE (NEGATIVE)
[2019-07-20 14:40] LABS: PLATELET 41 x1000/uL (130-400)
[2019-07-20 17:02] LABS: PLATELET ESTIMATE MARKEDLY DECREASED
[2019-07-20] MEDS ORDERED: MEROPENEM 500 MG in SODIUM CHLORIDE 0.9% 50 ML IV SCH (20:00)
[2019-07-20] MEDS: EPOETIN ALFA 10000UNITS/ML VIAL SUBCUT SCH (21:48)
[2019-07-21] VITALS (10 sets, daily range): BP systolic 100–146; BP diastolic 41–61
[2019-07-21] MEDS: BLOOD SUGAR DIAGNOSTIC STRIP TEST SCH ×5 (00:33→20:00)
[2019-07-21] MEDS: INSULIN LISPRO 100 UNITS/ML SUBCUT SCH ×5 (08:00→20:00)
[2019-07-21 10:59] LABS: HEMATOCRIT. 26.6 % (36.0-48.0); HEMOGLOBIN. 8.7 g/dL (12.0-16.0); MEAN CORPUSCULAR HEMOGLOBIN 31.9 pg (28.0-32.0); MEAN CORPUSCULAR VOLUME 97.2 fL (81.0-99.0); RED BLOOD CELL COUNT 2.74 mill/uL (4.2-5.4); RED CELL DISTRIBUTION WIDTH 17.7 % (11.6-14.6)
[2019-07-21 12:43] LABS: PLATELET ESTIMATE MARKEDLY DECREASED
[2019-07-21 12:47] LABS: PLATELET 24 x1000/uL (130-400)
[2019-07-21 12:48] LABS: MEAN PLATELET VOLUME 10.5 fl (7.4-10.4)
[2019-07-21] MEDS: MULTIVITAMINS,THER W-MINERALS TABLET PO SCH (19:22)
[2019-07-21] MEDS: DEXT 5%/0.45% NACL 1000ML 1,000 ML IV SCH (19:22)
[2019-07-21 19:38] LABS: HEMATOCRIT 29.6 % (36.0-48.0); HEMOGLOBIN 9.6 g/dL (12.0-16.0); MEAN CORPUSCULAR HEMOGLOBIN 31.9 pg (28.0-32.0); MEAN CORPUSCULAR VOLUME 98.4 fL (81.0-99.0); RED BLOOD CELL COUNT 3.01 mill/uL (4.2-5.4); RED CELL DISTRIBUTION WIDTH 17.8 % (11.6-14.6)
[2019-07-21 19:47] LABS: PLATELET 31 x1000/uL (130-400)
[2019-07-22] VITALS: BP_SYST 138; BP_SYST 170; BP_DIAS 49; BP_DIAS 57
[2019-07-22] MEDS: BLOOD SUGAR DIAGNOSTIC STRIP TEST SCH ×6 (00:05→20:00)
[2019-07-22 04:00] VITALS: BP 135/46
[2019-07-22] MEDS: INSULIN LISPRO 100 UNITS/ML SUBCUT SCH ×4 (04:00→11:45)
[2019-07-22 07:50] LABS: HEMATOCRIT. 29.3 % (36.0-48.0); HEMOGLOBIN. 9.6 g/dL (12.0-16.0); MEAN CORPUSCULAR HEMOGLOBIN 32.2 pg (28.0-32.0); MEAN CORPUSCULAR VOLUME 98.7 fL (81.0-99.0); MEAN PLATELET VOLUME 11.3 fl (7.4-10.4); RED BLOOD CELL COUNT 2.97 mill/uL (4.2-5.4); RED CELL DISTRIBUTION WIDTH 18.2 % (11.6-14.6)
[2019-07-22 08:08] LABS: PLATELET 37 x1000/uL (130-400)
[2019-07-22] MEDS: MULTIVITAMINS,THER W-MINERALS TABLET PO SCH (09:21)
[2019-07-22 12:05] VITALS: BP 131/48
[2019-07-22 12:50] LABS: PLATELET ESTIMATE MARKEDLY DECREASED
[2019-07-22 16:00] VITALS: BP 143/55
[2019-07-22] MEDS: DEXT 5%/0.45% NACL 1000ML 1,000 ML IV SCH (18:53)
[2019-07-22 20:00] VITALS: BP 136/58
[2019-07-22] MEDS: EPOETIN ALFA 10000UNITS/ML VIAL SUBCUT SCH (22:16)
[2019-07-23] VITALS: BP 125/46
[2019-07-23 04:00] VITALS: BP 147/61
[2019-07-23] MEDS: BLOOD SUGAR DIAGNOSTIC STRIP TEST SCH ×6 (04:00→21:37)
[2019-07-23 07:23] LABS: BASOPHILS % 1.2 % (0.0-2.0); EOSINOPHILS % 5.5 % (0.0-5.0); HEMATOCRIT. 30.8 % (36.0-48.0); HEMOGLOBIN. 9.9 g/dL (12.0-16.0); LYMPHOCYTES % 19.4 % (20.0-50.0); MEAN CORPUSCULAR HEMOGLOBIN 31.8 pg (28.0-32.0); MEAN CORPUSCULAR VOLUME 98.9 fL (81.0-99.0); MEAN PLATELET VOLUME 10.9 fl (7.4-10.4); MONOCYTES % 11.3 % (2.0-8.0); NEUTROPHILS % 62.6 % (40.0-76.0); RED BLOOD CELL COUNT 3.12 mill/uL (4.2-5.4)
[2019-07-23 07:50] LABS: PLATELET 27 x1000/uL (130-400)
[2019-07-23 08:00] VITALS: BP 136/46
[2019-07-23] MEDS: LEVOTHYROXINE SODIUM 112MCG TABLET PO SCH (08:56)
[2019-07-23] MEDS: MULTIVITAMINS,THER W-MINERALS TABLET PO SCH (08:56)
[2019-07-23] MEDS: DEXTROSE 50% WATER 50ML SYRINGE IV PRN (09:05)
[2019-07-23 12:00] VITALS: BP 158/59
[2019-07-23 16:00] VITALS: BP 150/59
[2019-07-23] MEDS: DEXT 5%/0.45% NACL 1000ML 1,000 ML IV SCH (18:55)
[2019-07-23 20:00] VITALS: BP 151/48
[2019-07-24] VITALS: BP 117/48
[2019-07-24 04:00] VITALS: BP 147/74
[2019-07-24 06:27] LABS: BASOPHILS % 1.1 % (0.0-2.0); EOSINOPHILS % 4.6 % (0.0-5.0); HEMOGLOBIN. 9.3 g/dL (12.0-16.0); LYMPHOCYTES % 23.9 % (20.0-50.0); MEAN CORPUSCULAR HEMOGLOBIN 31.3 pg (28.0-32.0); MEAN CORPUSCULAR VOLUME 97.7 fL (81.0-99.0); MONOCYTES % 12.9 % (2.0-8.0); NEUTROPHILS % 57.5 % (40.0-76.0); RED BLOOD CELL COUNT 2.97 mill/uL (4.2-5.4); RED CELL DISTRIBUTION WIDTH 17.9 % (11.6-14.6)
[2019-07-24 06:45] LABS: PLATELET 32 x1000/uL (130-400)
[2019-07-24] MEDS: BLOOD SUGAR DIAGNOSTIC STRIP TEST SCH ×4 (07:40→21:13)
[2019-07-24 08:00] VITALS: BP 136/37
[2019-07-24] MEDS: LEVOTHYROXINE SODIUM 112MCG TABLET PO SCH (08:45)
[2019-07-24] MEDS: MULTIVITAMINS,THER W-MINERALS TABLET PO SCH (08:45)
[2019-07-24 12:00] VITALS: BP 120/38
[2019-07-24 14:48] LABS: PLATELET ESTIMATE MARKEDLY DECREASED
[2019-07-24 16:00] VITALS: BP 127/41
[2019-07-24] MEDS: DEXT 5%/0.45% NACL 1000ML 1,000 ML IV SCH (18:47)
[2019-07-24 20:00] VITALS: BP 152/49
[2019-07-25 00:06] VITALS: BP 139/41
[2019-07-25 04:00] VITALS: BP 122/50
[2019-07-25] MEDS: BLOOD SUGAR DIAGNOSTIC STRIP TEST SCH ×4 (07:40→21:00)
[2019-07-25 08:00] VITALS: BP 136/42
[2019-07-25] MEDS: LEVOTHYROXINE SODIUM 112MCG TABLET PO SCH (08:34)
[2019-07-25] MEDS: MULTIVITAMINS,THER W-MINERALS TABLET PO SCH (08:51)
[2019-07-25 10:32] LABS: PHOSPHORUS 4.7 mg/dL (2.5-4.9)
[2019-07-25 10:38] LABS: BASOPHILS % 1.4 % (0.0-2.0); EOSINOPHILS % 4.7 % (0.0-5.0); HEMATOCRIT. 28.8 % (36.0-48.0); HEMOGLOBIN. 9.2 g/dL (12.0-16.0); LYMPHOCYTES % 25.6 % (20.0-50.0); MEAN CORPUSCULAR HEMOGLOBIN 31.5 pg (28.0-32.0); MEAN CORPUSCULAR VOLUME 97.9 fL (81.0-99.0); MEAN PLATELET VOLUME 11.8 fl (7.4-10.4); MONOCYTES % 10.1 % (2.0-8.0); NEUTROPHILS % 58.2 % (40.0-76.0); RED BLOOD CELL COUNT 2.94 mill/uL (4.2-5.4); RED CELL DISTRIBUTION WIDTH 17.7 % (11.6-14.6)
[2019-07-25 10:52] LABS: PLATELET 50 x1000/uL (130-400)
[2019-07-25 12:00] VITALS: BP 121/42
[2019-07-25 17:31] LABS: PLATELET ESTIMATE MARKEDLY DECREASED
[2019-07-25 20:00] VITALS: BP 128/53
[2019-07-26] VITALS: BP 120/52
[2019-07-26 00:23] VITALS: BP 120/52
[2019-07-26] MEDS: EPOETIN ALFA 10000UNITS/ML VIAL SUBCUT SCH (00:35)
== END 2019-07-26 04:00 | disposition home or self-care (01) | DRG 291 ==
LOC: ER 15:45 → EDBEDREQ 20:50 → 3WST 21:05 → EDBEDREQTM 21:35 → EDBEDREQ 21:35 → EDBEDREQSVC 21:35 → SUPCPDRO 07-19 13:06 → ENRESERV 07-19 14:18 → 7WST 07-21 16:33
PROVIDERS: ADMIT Internal Medicine; ATTEND Internal Medicine
PROC: 5A1D70Z Performance of Urinary Filtration, Intermittent, Less than 6 Hours Per Day (ICD-10-PCS; 2019-07-18)
PROC: 5A1D70Z Performance of Urinary Filtration, Intermittent, Less than 6 Hours Per Day (ICD-10-PCS; 2019-07-20)
PROC: 5A1D70Z Performance of Urinary Filtration, Intermittent, Less than 6 Hours Per Day (ICD-10-PCS; 2019-07-22)
PROC: 5A1D70Z Performance of Urinary Filtration, Intermittent, Less than 6 Hours Per Day (ICD-10-PCS; principal; 2019-07-25)
DX: I13.2 Hypertensive heart and chronic kidney disease with heart failure and with stage 5 chronic kidney disease, or end stage renal disease (principal); I50.43 Acute on chronic combined systolic (congestive) and diastolic (congestive) heart failure; N18.6 End stage renal disease; E43 Unspecified severe protein-calorie malnutrition; G93.40 Encephalopathy, unspecified; N39.0 Urinary tract infection, site not specified; D64.9 Anemia, unspecified; D69.6 Thrombocytopenia, unspecified; E11.22 Type 2 diabetes mellitus with diabetic chronic kidney disease; E11.51 Type 2 diabetes mellitus with diabetic peripheral angiopathy without gangrene; E11.649 Type 2 diabetes mellitus with hypoglycemia without coma; M19.90 Unspecified osteoarthritis, unspecified site; E66.9 Obesity, unspecified; E87.5 Hyperkalemia; D72.1 Eosinophilia; K86.89 Other specified diseases of pancreas; M06.9 Rheumatoid arthritis, unspecified; Z86.718 Personal history of other venous thrombosis and embolism; Z89.511 Acquired absence of right leg below knee; Z89.512 Acquired absence of left leg below knee; Z99.2 Dependence on renal dialysis; Z90.49 Acquired absence of other specified parts of digestive tract; Z91.15 Patient's noncompliance with renal dialysis; Z91.19 Patient's noncompliance with other medical treatment and regimen; Z68.30 Body mass index [BMI] 30.0-30.9, adult; Z79.01 Long term (current) use of anticoagulants; Z79.899 Other long term (current) drug therapy
CPT/HCPCS: 36415; 36600; 71045; 74176; 76700; 80048; 80061; 80305; 80320; 81003; 82140; 82270; 82375; 82378; 82550; 82553; 82805; 82962; 83036; 83540; 83550; 83605; 83880; 84100; 84145; 84439; 84443; 84484; 85027; 86301; 86705; 86706; 86709; 86803; 87015; 87045; 87340; 87427; 87449; 87493; 92610; 93005; 93970; 96374; 97161; 99285; A6261; J0885; J2185; J3490; G0480

== ENCOUNTER 2019-09-17 16:01 | Inpatient (IN) | payer MEDICARE, MEDICAID ==
[~2019-09-17] VITALS: Ht 170.2 cm; Wt 84.4 kg
[~2019-09-17 16:01] MED LIST changes: +OMEP20CA14 PO; -OMEP20CA5 PO
[2019-09-17] MEDS ORDERED: ASPIRIN 81MG TABLET PO ONE (16:45)
[2019-09-17 17:33] LABS: HEMATOCRIT. 34.7 % (36.0-48.0); HEMOGLOBIN. 10.9 g/dL (12.0-16.0); MEAN CORPUSCULAR HEMOGLOBIN 30.2 pg (28.0-32.0); MEAN CORPUSCULAR VOLUME 96.4 fL (81.0-99.0); NEUTROPHILS % 47.7 % (40.0-76.0); PLATELET 64 x1000/uL (130-400); RED CELL DISTRIBUTION WIDTH 17.7 % (11.6-14.6)
[2019-09-17 17:34] LABS: BASOPHILS % 2.6 % (0.0-2.0); EOSINOPHILS % 4.6 % (0.0-5.0); LYMPHOCYTES % 31.5 % (20.0-50.0); MONOCYTES % 13.6 % (2.0-8.0)
[2019-09-17 17:40] LABS: CHLORIDE 103 mEq/L (98-107)
[2019-09-17] MEDS ORDERED: SODIUM POLYSTYRENE SULFONATE 15 G/60 ML BOT PO ONE (19:15)
[2019-09-17] MEDS ORDERED: DEXTROSE 50% WATER 50ML SYRINGE IV ONE (19:15)
[2019-09-17] MEDS ORDERED: DEXTROSE 50% WATER 50ML SYRINGE IV PRN (20:15)
[2019-09-17] MEDS ORDERED: DIPHENHYDRAMINE 50MG/ML VIAL IV PRN (20:15)
[2019-09-17] MEDS ORDERED: HYDRALAZINE 20MG/ML VIAL IV PRN (20:15)
[2019-09-17] MEDS ORDERED: LORAZEPAM 0.5MG TABLET PO PRN (20:15)
[2019-09-17] MEDS ORDERED: IPRATROPIUM/ALBUTEROL 0.5-3(2.5)MG/3ML NEB NEB PRN (20:15)
[2019-09-17] MEDS ORDERED: GUAIFENESIN 200MG/10ML SUGAR FREE UDC PO PRN (20:15)
[2019-09-17] MEDS ORDERED: ONDANSETRON HCL 4MG/2ML INJ IV PRN (20:15)
[2019-09-17] MEDS ORDERED: DOCUSATE SODIUM 100MG CAPSULE PO PRN (20:15)
[2019-09-17] MEDS ORDERED: ACETAMINOPHEN 325MG TABLET PO PRN (20:15)
[2019-09-17] MEDS ORDERED: HYDROCODONE/ACETAMINOPHEN 5/325MG TABLET PO PRN (20:15)
[2019-09-17] MEDS ORDERED: ACETAMINOPHEN 650MG SUPP PR PRN (20:15)
[2019-09-17 21:30] VITALS: BP_SYST 121; BP_DIAS 61; BP_DIAS 62
[2019-09-17] MEDS: BLOOD SUGAR DIAGNOSTIC STRIP TEST SCH (22:00)
[2019-09-17] MEDS ORDERED: SODIUM POLYSTYRENE SULFONATE 15 G/60 ML BOT PO NR (23:00)
[2019-09-17 23:59] LABS: INR 1.2
[2019-09-18] VITALS: BP 126/43
[2019-09-18 00:04] LABS: CHLORIDE 104 mEq/L (98-107)
[2019-09-18 00:12] LABS: CREATINE KINASE 23 IU/L (26-192)
[2019-09-18 00:16] LABS: CREATINE KINASE MB FRACTION 1.6 ng/mL (0.5-3.6)
[2019-09-18 04:00] VITALS: BP 120/42
[2019-09-18] MEDS ORDERED: ALBUMIN HUMAN 25GM/100ML (25%) IV PRN (06:00)
[2019-09-18] MEDS ORDERED: GLUCAGON,HUMAN RECOMBINANT 1MG/VIAL IM NR (06:18)
[2019-09-18] MEDS: BLOOD SUGAR DIAGNOSTIC STRIP TEST SCH ×4 (06:35→20:00)
[2019-09-18 06:54] LABS: BASOPHILS % 3.1 % (0.0-2.0); HEMATOCRIT. 30.3 % (36.0-48.0); HEMOGLOBIN. 9.7 g/dL (12.0-16.0); LYMPHOCYTES % 33.3 % (20.0-50.0); MEAN CORPUSCULAR HEMOGLOBIN 30.7 pg (28.0-32.0); MEAN CORPUSCULAR VOLUME 95.9 fL (81.0-99.0); MEAN PLATELET VOLUME 10.8 fl (7.4-10.4); MONOCYTES % 13.4 % (2.0-8.0); NEUTROPHILS % 45.2 % (40.0-76.0); PLATELET 59 x1000/uL (130-400); RED BLOOD CELL COUNT 3.15 mill/uL (4.2-5.4); RED CELL DISTRIBUTION WIDTH 17.4 % (11.6-14.6)
[2019-09-18 07:26] LABS: CHLORIDE 104 mEq/L (98-107)
[2019-09-18 07:36] LABS: HDL CHOLESTEROL 46 mg/dL (40-59)
[2019-09-18 07:37] LABS: LDL CHOLESTEROL 40 mg/dL (5-100)
[2019-09-18 07:38] LABS: CREATINE KINASE MB FRACTION 1.3 ng/mL (0.5-3.6)
[2019-09-18 07:39] LABS: CREATINE KINASE 22 IU/L (26-192); T4 FREE 1.17 ng/dL (0.76-1.46)
[2019-09-18 07:49] VITALS: BP 119/44
[2019-09-18] MEDS ORDERED: ALTEPLASE 2MG/VIAL ITC NR (08:00)
[2019-09-18] MEDS: DEXT 5%/0.9% NACL 1,000 ML IV SCH (08:45)
[2019-09-18 12:00] VITALS: BP 130/68
[2019-09-18 16:00] VITALS: BP 136/48
[2019-09-18 20:00] VITALS: BP 126/45
[2019-09-19] VITALS: BP 137/90
[2019-09-19 04:00] VITALS: BP 117/48
[2019-09-19] MEDS: BLOOD SUGAR DIAGNOSTIC STRIP TEST SCH ×6 (04:00→20:00)
[2019-09-19 08:00] VITALS: BP 121/44
[2019-09-19] MEDS: DEXT 5%/0.9% NACL 1,000 ML IV SCH (08:45)
[2019-09-19 12:00] VITALS: BP 126/69
[2019-09-19] MEDS ORDERED: ALBUMIN HUMAN 25GM/100ML (25%) IV SCH (14:30)
[2019-09-19 15:23] LABS: BASOPHILS % 1.3 % (0.0-2.0); HEMOGLOBIN. 10.2 g/dL (12.0-16.0); LYMPHOCYTES % 40.4 % (20.0-50.0); MEAN CORPUSCULAR HEMOGLOBIN 29.8 pg (28.0-32.0); MEAN CORPUSCULAR VOLUME 96.7 fL (81.0-99.0); MEAN PLATELET VOLUME 11.1 fl (7.4-10.4); MONOCYTES % 12.5 % (2.0-8.0); NEUTROPHILS % 40.8 % (40.0-76.0); PLATELET 55 x1000/uL (130-400); RED BLOOD CELL COUNT 3.42 mill/uL (4.2-5.4); RED CELL DISTRIBUTION WIDTH 17.5 % (11.6-14.6)
[2019-09-19 15:31] LABS: PHOSPHORUS 4.2 mg/dL (2.5-4.9)
[2019-09-19] MEDS ORDERED: ALBUMIN HUMAN 25GM/100ML (25%) IV PRN (15:45)
[2019-09-19 16:00] VITALS: BP 146/54
[2019-09-19 20:00] VITALS: BP 134/50
[2019-09-20] VITALS: BP 130/53
[2019-09-20 04:00] VITALS: BP 126/47
[2019-09-20] MEDS: BLOOD SUGAR DIAGNOSTIC STRIP TEST SCH ×5 (04:00→16:00)
[2019-09-20 08:00] VITALS: BP 104/65
[2019-09-20 12:00] VITALS: BP 135/55
[2019-09-20 15:52] LABS: BASOPHILS % 3.6 % (0.0-2.0); EOSINOPHILS % 4.8 % (0.0-5.0); HEMATOCRIT. 32.5 % (36.0-48.0); HEMOGLOBIN. 10.2 g/dL (12.0-16.0); LYMPHOCYTES % 26.3 % (20.0-50.0); MEAN CORPUSCULAR HEMOGLOBIN 30.4 pg (28.0-32.0); MEAN CORPUSCULAR VOLUME 96.7 fL (81.0-99.0); MEAN PLATELET VOLUME 10.2 fl (7.4-10.4); MONOCYTES % 10.2 % (2.0-8.0); NEUTROPHILS % 55.1 % (40.0-76.0); RED BLOOD CELL COUNT 3.36 mill/uL (4.2-5.4); RED CELL DISTRIBUTION WIDTH 17.5 % (11.6-14.6)
[2019-09-20 16:00] VITALS: BP 110/67
[2019-09-20] MEDS ORDERED: HEPARIN SODIUM 1,000 UNIT/1ML VIAL IV NR (16:23)
[2019-09-20 18:21] VITALS: BP 131/51
[2019-09-20] MEDS ORDERED: EPOETIN ALFA 4000UNITS/ML VIAL SUBCUT SCH (21:00)
[2019-09-22 10:08] LABS: PLATELET 49 x1000/uL (130-400)
== END 2019-09-20 20:45 | disposition home or self-care (01) | DRG 291 ==
LOC: ER 16:01 → 8WST 19:19 → ENRESERV 19:45 → 8WST 09-18 06:44
PROVIDERS: ADMIT Internal Medicine; ATTEND Internal Medicine
PROC: 5A1D70Z Performance of Urinary Filtration, Intermittent, Less than 6 Hours Per Day (ICD-10-PCS; principal; 2019-09-18)
PROC: 5A1D70Z Performance of Urinary Filtration, Intermittent, Less than 6 Hours Per Day (ICD-10-PCS; 2019-09-19)
PROC: 5A1D70Z Performance of Urinary Filtration, Intermittent, Less than 6 Hours Per Day (ICD-10-PCS; 2019-09-20)
DX: I13.2 Hypertensive heart and chronic kidney disease with heart failure and with stage 5 chronic kidney disease, or end stage renal disease (principal); E43 Unspecified severe protein-calorie malnutrition; N18.6 End stage renal disease; I50.33 Acute on chronic diastolic (congestive) heart failure; E11.51 Type 2 diabetes mellitus with diabetic peripheral angiopathy without gangrene; D69.6 Thrombocytopenia, unspecified; D72.819 Decreased white blood cell count, unspecified; E03.9 Hypothyroidism, unspecified; D64.9 Anemia, unspecified; E11.649 Type 2 diabetes mellitus with hypoglycemia without coma; I95.3 Hypotension of hemodialysis; E87.5 Hyperkalemia; E11.22 Type 2 diabetes mellitus with diabetic chronic kidney disease; Z99.2 Dependence on renal dialysis; Z89.511 Acquired absence of right leg below knee; Z89.512 Acquired absence of left leg below knee; Z68.29 Body mass index [BMI] 29.0-29.9, adult; Z79.899 Other long term (current) drug therapy
CPT/HCPCS: 36415; 71045; 80048; 80053; 80061; 82140; 82550; 82553; 82962; 83735; 83880; 84100; 84439; 84443; 84484; 85025; 93005; 97162; 99285; J1644; J2997; J7040; J7042; P9047